=== PATIENT | male | born 1955 | race Caucasian/White ===

== ENCOUNTER → 2016-10-28 | Outpatient (CLI) | payer OTHER ==
[~2016-10-28] MED LIST: ADV250INH INH; ALBU17IN INH; ANOR1AER INH; ARNU1INH3 IN; CLOB0.0548 TOP; DIFL200T PO; DRIS50002 PO; PRED10TA PO; PRED20TAB PO; PULM90IN INH; TYLE325T5 PO; VORI200T5 PO; ZITH500T PO
--- NOTE | 2016-10-28 16:00 | REP ---
Low-dose lung screening CT without IV contrast: No lung masses or nodules are identified. There is chronic pleural parenchymal scarring and retraction in the lung apices bilaterally, not significantly changed from the prior study of 10/10/2013. There are no acute infiltrates or pleural effusions. There are multiple bulla replacing the lung parenchyma and bilaterally. Many of these bulla are quite large. The appearance is similar to the comparison study. Impression: No lung nodules or masses are identified. Category 1.0 low-dose screening lung CT. Recommend continued annual low-dose lung screening CT. Numerous chronic bullae are noted throughout the lung ziegler bilaterally, unchanged. Signed by You Glass MD 10/28/2016 03:51 P
== END ==
LOC: M RAD 14:19
PROVIDERS: ATTEND Internal Medicine Pulmonary Disease
DX: Z12.2 Encounter for screening for malignant neoplasm of respiratory organs (principal); J43.1 Panlobular emphysema; Z87.891 Personal history of nicotine dependence

== ENCOUNTER → 2017-01-23 | Outpatient (CLI) | payer OTHER ==
[~2017-01-23] MED LIST changes: +BREO1INH3 INH; +INCR1INH IN; +LATA5OPD OU
[2017-01-23 17:58] LABS: ANION GAP 7 MEQ/L (8-16); BLOOD UREA NITROGEN 13 MG/DL (7-18); CALCIUM LEVEL 9.4 MG/DL (8.8-10.2); CARBON DIOXIDE LEVEL 28 MEQ/L (21-32); CHLORIDE LEVEL 103 MEQ/L (98-107); CREATININE FOR GFR 0.93 MG/DL (0.70-1.30); GLOMERULAR FILTRATION RATE > 60.0 (>49); GLUCOSE, FASTING 105 MG/DL (80-110); POTASSIUM SERUM 4.3 MEQ/L (3.5-5.1); SODIUM LEVEL 138 MEQ/L (136-145)
== END ==
LOC: M LAB 16:24
PROVIDERS: ATTEND Nurse Practitioner Family
DX: E55.9 Vitamin D deficiency, unspecified (principal)

== ENCOUNTER 2017-03-02 08:30 | Outpatient (CLI) | payer OTHER ==
[~2017-03-02] VITALS: Ht 180.3 cm; Wt 58.1 kg
[~2017-03-02 08:30] MED LIST changes: +LIDOCAINE 2% INJ 100 MG/5 ML SDV (FOR ANES.) As Ordered ONE; +PROPOFOL 200 MG/20 ML VIAL As Ordered ONE
[2017-03-02] MEDS ORDERED: NS 1,000 ML IV ONE (09:00)
--- NOTE | 2017-03-02 09:39 | ROOR ---
Patient Name: Lamine Martinez Procedure Date: 03/02/2017 9:05 AM Date of : 1955 Age: 61 Room: [facility] Gender: Male Note Status: Finalized Procedure: Colonoscopy Indications: High risk colon cancer surveillance: Personal history of colonic polyps, Last colonoscopy: February 2015 Providers: Shilo LEGER MD Referring MD: Kim DELGADO NP Requesting Provider: Medicines: Monitored Anesthesia Care Complications: No immediate complications. Procedure: Pre-Anesthesia Assessment: - The heart rate, respiratory rate, oxygen saturations, blood pressure, adequacy of pulmonary ventilation, and response to care were monitored throughout the procedure. The Colonoscope was introduced through the anus and advanced to the cecum, identified by appendiceal orifice and ileocecal valve. The colonoscopy was performed without difficulty. The patient tolerated the procedure well. The quality of the bowel preparation was good. Findings: The perianal and digital rectal examinations were normal. A single (solitary) ulcer was found appendiceal orifice. Biopsies were taken with a cold forceps for histology. The exam was otherwise without abnormality on direct and retroflexion views. Impression: -Inverted tubular appendix with a deep single (solitary) ulcer at the appendiceal tip. Biopsied. - The examination was otherwise normal on direct and retroflexion views. Recommendation: - Perform CT scan (computed tomography) of the abdomen with contrast at appointment to be scheduled. - My office will schedule you and call you with date for CT scan - To discuss todays findings, my office will call you in the next few days to schedule a follow up appointment. Shilo Leger MD Shilo LEGER MD 03/02/2017 9:38:29 AM This report has been signed electronically. Number of Addenda: 0 Note Initiated On: 03/02/2017 9:05 AM Estimated Blood Loss: Estimated blood loss: none.
[2017-03-02 09:49] VITALS: BP 146/72
== END 2017-03-02 10:05 | disposition home or self-care (01) ==
LOC: M OPP 08:30
PROVIDERS: ATTEND Internal Medicine Gastroenterology
DX: Z12.11 Encounter for screening for malignant neoplasm of colon (principal); K63.3 Ulcer of intestine; Z86.010 Personal history of colon polyps; J44.9 Chronic obstructive pulmonary disease, unspecified; J84.112 Idiopathic pulmonary fibrosis; R06.02 Shortness of breath; B49 Unspecified mycosis; Z87.891 Personal history of nicotine dependence; Z88.8 Allergy status to other drugs, medicaments and biological substances; Z79.899 Other long term (current) drug therapy; Z80.1 Family history of malignant neoplasm of trachea, bronchus and lung

== ENCOUNTER → 2017-03-15 | Outpatient (CLI) | payer OTHER ==
[~2017-03-15] MED LIST changes: +GASTROGRAFIN SOLUTION 30ML (Q9963) As Ordered ONE; +ISOVUE-370 76% 100ML VIAL (Q9967) As Ordered ONE; -LIDOCAINE 2% INJ 100 MG/5 ML SDV (FOR ANES.) As Ordered ONE; -PROPOFOL 200 MG/20 ML VIAL As Ordered ONE
--- NOTE | 2017-03-15 19:39 | REP ---
CT abdomen and pelvis without and with IV contrast: History: Abnormal weight loss. CT contrast dose: 100 ml of intravenous Isovue 370. CT findings: The lungs are markedly hyperinflated and there are large bullae filling much of the right lower hemithorax. Advanced emphysematous changes are seen in the left lower lobe of the lung. No pleural effusion is seen. These findings are unchanged from 08/06/2015. The liver and spleen are normal in size. No focal liver mass lesion is seen. There are several small hepatic cysts noted unchanged. The spleen is unremarkable. No adrenal lesion is seen on either side. The gallbladder and pancreas show no abnormality. There are two small sub-centimeter is cortical cysts in the kidneys, one in each upper pole. No hydronephrosis is seen. No mass lesion is observed. There is some vascular calcification. No intrarenal calculus is seen. There is scattered right colon diverticulosis without CT evidence of diverticulitis. There is sigmoid colon diverticulosis as well. No sigmoid diverticulitis seen. Prostate contains several dystrophic calcifications. Urinary bladder is unremarkable. No abdominal wall defect is seen. Impression: 1. Severe COPD evident at the lung bases. 2. Right and left colonic diverticulosis. 3. Small hepatic and renal cysts. 4. Otherwise unremarkable. Signed by Patel Ayala MD 03/15/2017 08:07 P
== END ==
LOC: M RAD 16:01
PROVIDERS: ATTEND Internal Medicine Gastroenterology
DX: R63.4 Abnormal weight loss (principal); D37.3 Neoplasm of uncertain behavior of appendix; J44.9 Chronic obstructive pulmonary disease, unspecified; K57.30 Diverticulosis of large intestine without perforation or abscess without bleeding; N28.1 Cyst of kidney, acquired; K76.89 Other specified diseases of liver
CPT/HCPCS: 74178; Q9963; Q9967

== ENCOUNTER 2017-11-10 08:15 | Day surgery (SDC) | payer OTHER ==
[2017-11-10] MEDS: NS 1,000 ML IV (08:47)
[2017-11-10] MEDS ORDERED: LIDOCAINE 2% INJ 100 MG/5 ML SDV (FOR ANES.) As Ordered (09:19)
[2017-11-10] MEDS ORDERED: PROPOFOL 200 MG/20 ML VIAL As Ordered (09:19)
== END 2017-11-10 10:04 | disposition home or self-care (01) ==
LOC: M OPP 08:15
DX: Z09 Encounter for follow-up examination after completed treatment for conditions other than malignant neoplasm (principal); D49.0 Neoplasm of unspecified behavior of digestive system; Z86.010 Personal history of colon polyps; K62.1 Rectal polyp; K57.30 Diverticulosis of large intestine without perforation or abscess without bleeding; D12.6 Benign neoplasm of colon, unspecified; K38.8 Other specified diseases of appendix; K21.9 Gastro-esophageal reflux disease without esophagitis; Z87.09 Personal history of other diseases of the respiratory system; R06.02 Shortness of breath; J44.9 Chronic obstructive pulmonary disease, unspecified; J84.112 Idiopathic pulmonary fibrosis; R06.83 Snoring; Z88.8 Allergy status to other drugs, medicaments and biological substances; Z79.899 Other long term (current) drug therapy; Z80.1 Family history of malignant neoplasm of trachea, bronchus and lung
CPT/HCPCS: 45385

== ENCOUNTER → 2018-01-08 | Outpatient (CLI) | payer OTHER | LOC: M EKG 15:06 | DX: R94.31 Abnormal electrocardiogram [ECG] [EKG] (principal) | CPT/HCPCS: 93005 ==

== ENCOUNTER → 2018-01-18 | Outpatient (CLI) | payer OTHER | LOC: M SMT 08:01 | DX: J44.9 Chronic obstructive pulmonary disease, unspecified (principal) | CPT/HCPCS: 71046 ==

== ENCOUNTER → 2018-01-24 | Outpatient (CLI) | payer OTHER | LOC: M RAD 13:58 | DX: Z12.2 Encounter for screening for malignant neoplasm of respiratory organs (principal); F17.210 Nicotine dependence, cigarettes, uncomplicated; J44.9 Chronic obstructive pulmonary disease, unspecified; R91.8 Other nonspecific abnormal finding of lung field | CPT/HCPCS: G0297 ==

== ENCOUNTER → 2018-02-02 | Outpatient (CLI) | payer OTHER ==
[~2018-02-02] MED LIST changes: -ADV250INH INH; -ALBU17IN INH; -ANOR1AER INH; -ARNU1INH3 IN; -BREO1INH3 INH; -CLOB0.0548 TOP; -DIFL200T PO; -DRIS50002 PO; -GASTROGRAFIN SOLUTION 30ML (Q9963) As Ordered ONE; -INCR1INH IN; +ISOVUE-370 76% 100ML VIAL (Q9967) As Ordered; -ISOVUE-370 76% 100ML VIAL (Q9967) As Ordered ONE; -LATA5OPD OU; -PRED10TA PO; -PRED20TAB PO; -PULM90IN INH; -TYLE325T5 PO; -VORI200T5 PO; -ZITH500T PO
== END ==
LOC: M RAD 14:08
DX: R91.8 Other nonspecific abnormal finding of lung field (principal); N28.1 Cyst of kidney, acquired; K76.89 Other specified diseases of liver
CPT/HCPCS: Q9967

== ENCOUNTER → 2018-12-05 | Outpatient (CLI) | payer OTHER ==
[~2018-12-05] MED LIST changes: +ADV250INH INH; +ALBU17IN INH; +ANOR1AER INH; +ARNU1INH3 IN; +BREO1INH3 INH; +CLOB0.0548 TOP; +DIFL200T PO; +DRIS50003 PO; +INCR1INH IN; -ISOVUE-370 76% 100ML VIAL (Q9967) As Ordered; +LATA0.0013 OU; +PRED-351 PO; +PRED20TAB PO; +PULM90IN INH; +TYLE325T5 PO; +VORI200T PO; +ZITH500T PO
--- NOTE | 2018-12-05 13:56 | REP ---
CT chest without contrast: History: Panlobular emphysema. Hemoptysis. Comparison CT study February 02, 2018. August 06, [address] study is also reviewed. CT findings: Preliminary digital wrapper caser radiograph demonstrates marked hyperinflation. A huge right lung bullous is seen. The right hilus is retracted upward as before. There is no evidence of pleural effusion. No pericardial effusion is seen. The heart is not enlarged. Vascular calcification is noted including coronary artery vascular calcification as before. There is a small cyst in the left lobe of the liver. No adrenal lesion is observed. No acute bony abnormality is appreciated. On lung window settings, profound emphysematous changes are again noted. There are huge bullae in the right lower lobe and right upper lobe as before. Moderately large bullae are seen in the left upper lobe and to a lesser extent in the left lower lobe. These are essentially unchanged. Left apical pleuroparenchymal fibrosis which is unchanged from the comparison study. There is a small area of spiculated fibrosis in the left upper lobe more centrally also unchanged. There is a small quantity of peribronchial thickening and inspissated endobronchial mucus in the left lower lobe segmental bronchi. No significant pulmonary nodule is seen. There are one or two granulomatous calcifications in the right lung. There is considerable volume loss in the right upper lobe. The right hilus is retracted upwards. The right upper lobe bronchi are displaced posteriorly and superiorly with the area of bronchiectasis and chronic collapse in the right upper lobe posteriorly with associated fibrosis. A complex cavitary lesion is seen below this in the superior segment of the right lower lobe. This also shows posterior and upward retraction. Air bronchograms are seen. The complex cavitary lesion has an 8.3 cm craniocaudal imaging span by 3.1 by 2.7 cm transverse dimension. This appears essentially unchanged. Impression: Severe COPD emphysematous changes. Chronic atelectasis with scarring right upper lobe and the superior segment right lower lobe with a complex cavitary lesion again seen essentially unchanged. No new mass or adenopathy seen. Electronically Signed by Patel Ayala MD 12/05/2018 02:36 P
== END ==
LOC: M RAD 12:23
PROVIDERS: ATTEND Internal Medicine Pulmonary Disease
DX: J43.1 Panlobular emphysema (principal); R04.2 Hemoptysis; K76.89 Other specified diseases of liver; I25.10 Atherosclerotic heart disease of native coronary artery without angina pectoris; R91.8 Other nonspecific abnormal finding of lung field; J98.11 Atelectasis

== ENCOUNTER → 2020-07-08 | Outpatient (REF) | payer MEDICARE, OTHER | LOC: M LAB REF 17:02 | PROVIDERS: ATTEND Internal Medicine Pulmonary Disease | DX: J44.9 Chronic obstructive pulmonary disease, unspecified (principal) ==

== ENCOUNTER → 2021-03-09 | Outpatient (CLI) | payer MEDICARE, OTHER ==
[2021-03-09 10:42] LABS: ABG BASE EXCESS -2.8 (-2.0-2.0); ABG HCO3 20.5 MEQ/L (22.0-26.0); ABG O2 SATURATION 95.6 % (95.0-99.0); ABG PARTIAL PRESSURE CO2 31.9 mmHg (35.0-45.0); ABG PARTIAL PRESSURE O2 75.2 mmHg (75.0-100.0); ABG STANDARD HCO3 22.1 MEQ/L (22.0-26.0); ABG TOTAL CO2 21.4 MEQ/L (23.0-31.0); ABG pH (ARTERIAL) 7.425 UNITS (7.350-7.450)
--- NOTE | 2021-03-10 10:15 | ECHO ---
ECHOCARDIOGRAM DATE OF PROCEDURE: 03/09/2021 Age: Gender: Height: 170 cm Weight: 51 kg REFERRING PHYSICIAN: Dr. Sultana INDICATION: Chronic obstructive pulmonary disease (COPD) MEASUREMENTS: IVS: 0.8 LV: 2.9 LVPW: 0.9 LA: 2.5 Aorta: 3.1 IVC: 1.3 RV: Mitral E wave velocity is 73; A wave 58 E prime septal: 3.5 E prime lateral: 3.3 FINDINGS: This study is of very limited technical quality due to poor visualization consequently to underlying chronic obstructive pulmonary disease (COPD). Left ventricle has relatively small size and overall likely normal contractility. I estimated the ejection fraction (EF) in the neighborhood of 60-65%. Right ventricle does not appear enlarged and appears to be normally contractile based on limited views. Both atria appear normal. Limited views of aortic, mitral and tricuspid valves appear normal. Pulmonic valve was not visualized. Trivial pericardial effusion is noted. Inferior vena cava is relatively small size. Aortic root is normal. Aortic arch and abdominal aorta were not well seen. Doppler interrogation reveals competent aortic and mitral valves. There is trace tricuspid insufficiency. Calculated pulmonary artery pressure is at least around 40 mmHg or higher based on very poor quality tricuspid regurgitant (TR) jet. Mitral inflow pattern and tissue Doppler imaging of mitral annulus revealed grade 2 diastolic dysfunction. CONCLUSIONS: 1. Study is of poor technical quality with difficult visualization. Underlying sinus rhythm. 2. Relatively small left ventricle with normal left ventricular (LV) systolic function and grade 2 diastolic dysfunction. 3. Normal right ventricle (RV) size. 4. No hemodynamically significant valvular disease. 5. Likely normal central venous pressure. 6. At least mild to moderate pulmonary hypertension.
== END ==
LOC: M CARPUL 10:12
DX: J44.9 Chronic obstructive pulmonary disease, unspecified (principal); R06.00 Dyspnea, unspecified; I27.20 Pulmonary hypertension, unspecified

== ENCOUNTER 2021-06-29 09:28 | Inpatient (IN) | payer MEDICARE, MEDICAID ==
[~2021-06-29] VITALS: Ht 180.3 cm; Wt 52.0 kg
[2021-06-29] MEDS ORDERED: dexameTHASONE 20MG/5ML VIAL (J1100 PER 1MG) IV ONE (09:40)
[2021-06-29] MEDS ORDERED: ADVA230A INH (10:08)
[2021-06-29] MEDS ORDERED: PRED10TA2 PO (10:08)
[2021-06-29 10:10] LABS: BASO # 0.1 10^3/uL (0.0-0.2); BASO % 0.4 % (0.0-1.0); EOS % 0.2 % (0.0-3.0); HEMATOCRIT 49.5 % (42.0-52.0); LYMPH # 1.9 10^3/uL (1.5-5.0); MEAN CORPUSCULAR HEMOGLOBIN 30.2 pg (27.0-33.0); MEAN CORPUSCULAR HGB CONC 32.3 g/dl (32.0-36.5); MEAN CORPUSCULAR VOLUME 93.4 fl (80.0-96.0); MONO # 1.3 10^3/uL (0.0-0.8); MONO % 5.6 % (2.0-8.0); NEUTROPHILS # 20.2 10^3/uL (1.5-8.5); NEUTROPHILS % 84.8 % (36.0-66.0); PLATELET COUNT, AUTOMATED 695 10^3/uL (150-450); WHITE BLOOD COUNT 23.8 10^3/uL (4.0-10.0)
[2021-06-29] MEDS: COMBIVENT RESPIMAT 100-20MCG INHALER 4GM INH SCH ×2 (10:14→10:15)
[2021-06-29 10:32] LABS: ABG BASE EXCESS -3.6 (-2.0-2.0); ABG HCO3 19.2 MEQ/L (22.0-26.0); ABG O2 SATURATION 95.5 % (95.0-99.0); ABG PARTIAL PRESSURE CO2 29.3 mmHg (35.0-45.0); ABG PARTIAL PRESSURE O2 77.9 mmHg (75.0-100.0); ABG STANDARD HCO3 21.4 MEQ/L (22.0-26.0); ABG TOTAL CO2 20.1 MEQ/L (23.0-31.0); ABG pH (ARTERIAL) 7.434 UNITS (7.350-7.450)
--- NOTE | 2021-06-29 10:39 | REP ---
INDICATION: DYSPNEA/COUGH COMPARISON: 01/18/2018 TECHNIQUE: Portable AP view of the chest FINDINGS: Severe advanced COPD/emphysematous changes are again noted. Superimposed left-sided infiltrates cannot be excluded. IMPRESSION: Advanced severe COPD/emphysematous disease with suspected superimposed left-sided infiltrates. <Electronically signed by Bird Diallo > 06/29/21 [id number]
[2021-06-29 10:48] LABS: ALBUMIN 2.6 GM/DL (3.2-5.2); ALT/SGPT 25 U/L (12-78); BILIRUBIN,DIRECT 0.3 MG/DL (0.0-0.2); BILIRUBIN,TOTAL 0.8 MG/DL (0.2-1.0); BLOOD UREA NITROGEN 21 MG/DL (7-18); CALCIUM LEVEL 10.1 MG/DL (8.8-10.2); CARBON DIOXIDE LEVEL 24 MEQ/L (21-32); CHLORIDE LEVEL 100 MEQ/L (98-107); CREATININE FOR GFR 1.02 MG/DL (0.70-1.30); GLOMERULAR FILTRATION RATE > 60.0 (>49); GLUCOSE, FASTING 126 MG/DL (70-100); NT-PRO BNP 419 PG/ML (<125); POTASSIUM SERUM 5.3 MEQ/L (3.5-5.1); SODIUM LEVEL 136 MEQ/L (136-145); TOTAL PROTEIN 7.5 GM/DL (6.4-8.2)
[2021-06-29] MEDS ORDERED: cefTRIAXone SOD 2 GM in D5W MINI-BAG PLUS 50 ML IV ONE (10:50)
[2021-06-29] MEDS ORDERED: AZITHROMYCIN INJ 500 MG, VIAL MATE ADAPTER 1 EACH in NS 250 ML IV ONE (10:50)
[2021-06-29] MEDS ORDERED: VENTAER INH (11:38)
[2021-06-29] MEDS ORDERED: ALBU83IN INH (11:40)
[2021-06-29] MEDS ORDERED: HOME MED LIST COMPLETE! XX SCH (11:45)
[2021-06-29] MEDS ORDERED: ACETAMINOPHEN TAB 650MG DOSE (2X325MG) PO ONE (13:05)
--- NOTE | 2021-06-29 13:57 | HPEPDOC ---
[facility] Medical History & Physical Date of Admission Jun 29, 2021 Date of Service: Jun 29, 2021 Attending Physician: EMIGDIO HUBER DO History and Physical CHIEF COMPLAINT: Shortness of breath HISTORY OF PRESENT ILLNESS: Patient is a 65-year-old male who came to the ED today (06/29/2021) today after 2-week period of ongoing shortness of breath. Patient states that beginning 2 weeks ago, his symptoms started with flulike symptoms (muscle aches, decreased appetite, diarrhea) which lasted for about 48 hours. At that time. The body aches have resolved but he was still experiencing decreased appetite, diarrhea, and shortness of breath. After that he began to become weaker and was becoming more short of breath with exertion. Since this first 2 days he said the diarrhea has been intermittent. He decided to come to the hospital to get checked out because the shortness of breath has worsened over the last 2 to 3 days and he has not seen any improvement since his symptoms started. Patient has a extensive history of COPD and documented pneumonia episodes; is not on home oxygen. Of note, patient sees Dr. Worley for pulmonology. He had an appointment last week but he canceled it because he was not feeling good. Per ER son report, upon arrival to the ED patient was satting in the low 80%/high 70s on room air. He was given dexamethasone and an albuterol nebulizer treatment. He was started on ceftriaxone and azithromycin for bacterial pneumonia coverage.Chest x-ray showed "advanced severe COPD/emphysematous disease with suspected superimposed left-sided infiltrates." Hospitalist service was paged to admit the patient for acute hypoxic respiratory failure PAST MEDICAL HISTORY: 1. Emphysema. 2. Fungal pneumonia (2013). 3. Periodontal disease (2014). 4. Tobacco abuse 5. Alcohol abuse PAST SURGICAL HISTORY: 1. Lung biopsy. 2. Hernia repair -childhood. 3. Bronchoscopy (2013) -follows Dr. Worley for pulmonology. SOCIAL HISTORY: Marital status: Single. Resides in: Apartment Children: None Employment: Unemployed Tobacco use: Former smoker, quit 7 years ago (before that smoked 2 packs a day beginning at 15) ETOH: Denies current use Illicit drug use: Denies IV drug use: Denies Marijuana use: Last smoked 3 to 4 weeks ago; began smoking marijuana occasionall y beginning at age 15, and then a few years ago, started smoking daily FAMILY HISTORY: Father: Lung cancer, emphysema Mother: Heart disease Siblings: 2 brothers; one brother has history of double bypass and skin cancer ALLERGIES: Please see below. REVIEW OF SYSTEMS: CONSTITUTIONAL: Reports objective fevers and chills. HEENT: Denies blurry vision and postnasal drip. CARDIOVASCULAR: Denies tachycardia; reported one episode of short, sharp chest pain that happened 2 days ago (said it lasted probably less than 30 seconds). RESPIRATORY: Reports shortness of breath, productive cough) usual cough related to chronic lung disease). GASTROINTESTINAL: Reports nausea associated with coughing fits, and diarrhea; denies vomiting GENITOURINARY: Denies dysuria, hematuria. MUSCULOSKELETAL: Denies new muscle or joint pain NEUROLOGICAL: Denies headache, dizziness PSYCHIATRIC: Denies anxiety, depression ENDOCRINE: Denies changes in thirst or increased urination HOME MEDICATIONS: Please see below. PHYSICAL EXAMINATION: VITAL SIGNS: Temperature 98.6, pulse 112, respiratory rate 20, blood pressure 14 4/85, pulse oximetry 98% % on 2 L nasal cannula. GENERAL APPEARANCE: 65-year-old, male, lying in bed propped up in the ED, frail in appearance, on 2 L nasal cannula. HEENT: Head normocephalic/atraumatic, eyes PERRLA and EOMI. CARDIOVASCULAR: Tachycardic but regular rhythm. LUNGS: Diffuse wheezes appreciated bilaterally, along with decreased lung sounds especially noted in the left side. ABDOMEN: Normoactive bowel sounds and nontender to palpation. EXTREMITIES: No lower extremity edema appreciated. NEUROLOGICAL: No gross deficits appreciated. PSYCHIATRIC: Alert and oriented x3. LABORATORY DATA: See below. IMAGING: Advanced severe COPD/emphysematous disease with suspected superimposed left- sided infiltrates MICROBIOLOGY: Please see below. ASSESSMENT: Patient is a 65-year-old male, who presented to the ED today (06/29/2021) With 2-week history of ongoing shortness of breath, secondary to acute hypoxic respiratory failure, and possible left-sided pneumonia. PLAN: #. Acute hypoxic respiratory failure possibly secondary to COPD exacerbation or bacterial superimposed pneumonia -Patient currently maintaining sats at 90% on 2 L nasal cannula -In the ED he was given dexamethasone 10 mg IV once and albuterol breathing treatments -Continue with methylprednisolone 40 mg IV twice daily -Patient's heart rate has remained tachycardic -begin Xopenex neb every 6 hours -Continue pantoprazole for ulcer prophylaxis -Begin aspiration precautions and COPD diet -Incentive spirometry -Begin Spiriva and continue Advair and Incruse Ellipta -Titrate O2 to maintain saturations between 88 and 92% #. Sepsis likely secondary to left sided bacterial pneumonia -Begin ceftriaxone and doxycycline tomorrow morning -Obtain sputum culture from expectorated sputum -Atypical cultures have been ordered -Respiratory panel negative -Procalcitonin has been ordered #. Respiratory alkalosis -Lactate elevated upon presentation at 3.4 -Repeat lactic acid was within normal range. We will continue to monitor. #. Lactic acidosis. Patient's lactic acid was elevated 3.4 on presentation. Now the patient was receiving oxygen, patient's lactic acid has improved. This is most likely secondary to patient's respiratory distress. DVT prophylaxis: Lovenox CODE STATUS: Full code Disposition: Patient will be admitted to the progressive care unit. I do expect the patient be discharged after greater than equal to 2 midnight stay. Vital Signs Vital Signs Date Time Temp Pulse Resp B/P (MAP) Pulse Ox O2 Delivery O2 Flow Rate FiO2 06/29/21 12:00 112 20 144/85 (104) 98 Nasal Cannula 2.0 06/29/21 09:41 99.6 Laboratory Data Labs 24H Laboratory Tests 2 06/29/21 09:53: Immature Granulocyte % (Auto) 1.0, Neutrophils (%) (Auto) 84.8H, Lymphocytes (%) (Auto) 8.0L, Monocytes (%) (Auto) 5.6, Eosinophils (%) (Auto) 0.2, Basophils (%) (Auto) 0.4, Neutrophils # (Auto) 20.2H, Lymphocytes # (Auto) 1.9, Monocytes # (Auto) 1.3H, Eosinophils # (Auto) 0.0, Basophils # (Auto) 0.1, Nucleated Red Blood Cells % (auto) 0.0, Anion Gap 12, Glomerular Filtration Rate > 60.0, Lac tic Acid Level 3.4*H, Calcium Level 10.1, Total Bilirubin 0.8, Direct Bilirubin 0.3H, Aspartate Amino Transf (AST/SGOT) 22, Alanine Aminotransferase (ALT/SGPT) 25, Alkaline Phosphatase 117, YL-Lob-L-Type Natriuretic Peptide 419H, Total Protein 7.5, Albumin 2.6L, Albumin/Globulin Ratio 0.5 06/29/21 10:19: Blood Gas Bicarbonate Standard 21.4L, Arterial Blood pH 7.434, Arterial Blood Partial Pressure CO2 29.3L, Arterial Blood Partial Pressure O2 77.9, Arterial Blood Total CO2 20.1L, Arterial Blood HCO3 19.2L, Arterial Blood Base Excess - 3.6L, Arterial Blood Oxygen Saturation 95.5 CBC/BMP Laboratory Tests 06/29/21 09:53 Microbiology Microbiology 06/29/21 Respiratory Virus Panel (PCR) ([facility]) - Final, Complete 06/29/21 Blood Culture, Received Pending 06/29/21 Blood Culture, Received Pending Home Medications Scheduled Fluticasone Propion/Salmeterol (Advair Hfa 230-21 Mcg Inhaler) 12 Gm Hfa.aer.ad, 2 PUFFS INH BID Prednisone (Prednisone) 10 Mg Tablet, 10 MG PO Q2D Umeclidinium [place] (Incruse Ellipta) 62.5 Mcg/Inh Inh, 1 PUFF IN DAILY Scheduled PRN Albuterol Sulf (Albuterol Sulfate) 2.5 Mg/3 Ml Vial.neb, 1 VIAL INH QIDP PRN for SOB/WHEEZING Albuterol Sulfate (Ventolin Hfa) 18 Gm Hfa.aer.ad, 2 PUFF INH Q4-6HP PRN for wheezing Allergies Coded Allergies: itraconazole (Verified Allergy, Severe, RASH, 06/29/21) GME ATTESTATION GME ATTESTATION My faculty preceptor for this patient encounter was physically present during the encounter and was fully available. All aspects of the patient interview, examination, medical decision making process, and medical care plan development were reviewed and approved by the faculty preceptor. The faculty preceptor is aware and concurs with the plan as stated in the body of this note and will attest to such by his/her cosignature. ATTENDING NOTE I, Emigdio Huber DO, have independently examined this patient and performed my own physical exam, as well as reviewed the documentation and edited where necessary. I have discussed in detail with the resident the findings and plan of treatment as documented by the resident and edited their note. I agree with their findings and treatment plan and have edited their documentation. I will continue to follow the patient during this hospital stay. Kenton Sosa DO Jun 29, 2021 13:57 EMIGDIO HUBER DO Jun 29, 2021 17:28
[2021-06-29] MEDS: LEVALBUTEROL 1.25 MG/0.5 ML CONCENTRATE NEB NEB SCH ×2 (14:00→20:00)
[2021-06-29] MEDS: TIOTROPIUM INHALER/CAPSULE (SPIRIVA) INH SCH (14:23)
[2021-06-29 16:51] VITALS: BP 141/77
[2021-06-29] MEDS: PANTOPRAZOLE 40MG TAB (PROTONIX) PO SCH (17:29)
--- NOTE | 2021-06-29 19:29 | ECGEPIP ---
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
[2021-06-29 20:00] VITALS: BP_SYST 109; BP_SYST 119; BP_DIAS 58; BP_DIAS 64
[2021-06-29] MEDS: ADVAIR HFA 230/21MCG INHALER INH SCH (20:00)
[2021-06-29] MEDS: methylPREDNISolone 40MG 1ML VIAL IV SCH (20:41)
[2021-06-30] VITALS (17 sets, daily range): BP systolic 104–138; BP diastolic 62–81; O2SAT 88–94
[2021-06-30] MEDS: LEVALBUTEROL 1.25 MG/0.5 ML CONCENTRATE NEB NEB SCH ×4 (01:48→19:29)
[2021-06-30] MEDS: DOXYCYCLINE HYCLATE 100 MG in D5W MINI-BAG PLUS 100 ML IV SCH ×2 (05:26→17:21)
[2021-06-30 05:58] LABS: HEMATOCRIT 39.2 % (42.0-52.0); MEAN CORPUSCULAR HEMOGLOBIN 29.8 pg (27.0-33.0); MEAN CORPUSCULAR HGB CONC 31.9 g/dl (32.0-36.5); MEAN CORPUSCULAR VOLUME 93.3 fl (80.0-96.0); WHITE BLOOD COUNT 18.6 10^3/uL (4.0-10.0)
[2021-06-30 06:09] LABS: HEMOGLOBIN 12.5 g/dl (13.5-17.5); PLATELET COUNT, AUTOMATED 566 10^3/uL (150-450)
[2021-06-30 06:40] LABS: BLOOD UREA NITROGEN 22 MG/DL (7-18); CALCIUM LEVEL 9.1 MG/DL (8.8-10.2); CARBON DIOXIDE LEVEL 25 MEQ/L (21-32); CHLORIDE LEVEL 106 MEQ/L (98-107); CREATININE FOR GFR 0.77 MG/DL (0.70-1.30); GLOMERULAR FILTRATION RATE > 60.0 (>49); GLUCOSE, FASTING 153 MG/DL (70-100); MAGNESIUM LEVEL 2.5 MG/DL (1.8-2.4); POTASSIUM SERUM 5.8 MEQ/L (3.5-5.1); SODIUM LEVEL 136 MEQ/L (136-145)
[2021-06-30] MEDS: ADVAIR HFA 230/21MCG INHALER INH SCH ×2 (08:00→19:29)
[2021-06-30] MEDS: ENOXAPARIN 40MG/0.4ML SYRINGE (J1650 PER 10MG) SC SCH (08:03)
[2021-06-30] MEDS: PANTOPRAZOLE 40MG TAB (PROTONIX) PO SCH (08:03)
[2021-06-30] MEDS: methylPREDNISolone 40MG 1ML VIAL IV SCH ×2 (08:03→21:00)
[2021-06-30] MEDS ORDERED: PREVNAR 13 VACCINE SYRINGE IM ONE (09:00)
[2021-06-30] MEDS: TIOTROPIUM INHALER/CAPSULE (SPIRIVA) INH SCH (09:41)
[2021-06-30] MEDS: cefTRIAXone SOD 1 GM in D5W MINI-BAG PLUS 50 ML IV SCH (11:55)
--- NOTE | 2021-06-30 13:43 | IPNPDOC ---
Date Seen The patient was seen on 06/30/21. Progress Note SUBJECTIVE: Patient is a 59-year-old male presents to the ED on 06/29/2021 after 2 week period of ongoing shortness of breath and weakness. He is not on home oxygen. He was admitted for inpatient management and was placed on ceftriaxone and doxycycline for coverage for possible bacterial pneumonia, dexamethasone, Spiriva and Advair and Incruse Ellipta. Today patient was examined at bedside. He appears to be breathing much easier with considerably less effort than when first saw patient yesterday. He says he is feeling better as well, and reported no events overnight. He reports continued shortness of breath with exertion but reports less fatigue. He denies nausea, vomiting, diarrhea, chest pain. Of note his potassium came back elevated at 5.8 and was rechecked due to sample being hemolyzed. On recheck it was 4.4. OBJECTIVE PHYSICAL EXAMINATION: VITAL SIGNS: Please see below. GENERAL: 65-year-old, male, frail in appearance, lying in bed, no acute distress. Noted to have jeans and shoes on still in bed. Says that he has not changed his clothes in 2 weeks CARDIOVASCULAR: Regular rate and rhythm, no murmurs, no rubs, no gallops. RESPIRATORY: Clear to auscultation but diminished breath sounds throughout; pursed lip breathing but less than yesterday, symmetric chest expansion ABDOMINAL: Normoactive bowel sounds and nontender to palpation EXTREMITIES: No lower extremity edema present LABORATORY DATA, IMAGING STUDIES, MICROBIOLOGY: Please see below. DVT prophylaxis ordered?: Lovenox ASSESSMENT AND PLAN: This is a 59-year-old male with acute failure secondary to COPD exacerbation for superimposed bacterial pneumonia. #. Acute hypoxic respiratory failure possibly secondary to COPD exacerbation or bacterial superimposed pneumonia -Patient currently maintaining sats at 90% on 2 L nasal cannula -Continue with methylprednisolone 40 mg IV twice daily -Patient's heart rate has remained less than 100 -Continue pantoprazole for ulcer prophylaxis -Continue aspiration precautions and COPD diet -Incentive spirometry -Continue Spiriva and continue Advair and Incruse Ellipta -Titrate O2 to maintain saturations between 88 and 92% #. Sepsis likely secondary to left sided bacterial pneumonia -Patient is remained afebrile overnight, his white blood cell count and lactate have decreased -Continue ceftriaxone and doxycycline -we will likely transition to oral antibiotics tomorrow due to patient's improvement -Obtain sputum culture from expectorated sputum -Atypical cultures have been ordered -Respiratory panel negative -Procalcitonin normal #. Respiratory alkalosis -Lactate within normal limits (2.0) #. Lactic acidosis. Patient's lactic acid was elevated 3.4 on presentation. Now the patient was receiving oxygen, patient's lactic acid has improved. This is most likely secondary to patient's respiratory distress. #. Hyperkalemia. Morning labs showed the patient's potassium to be 5.8. It was 5.3 yesterday. There was a comment stating the patient's potassium this morning was done on a hemolyzed sample. Recheck was performed and it was 4.4. We will continue to monitor. DVT prophylaxis: Lovenox DISPOSITION: Pending transition to oral antibiotics and oral steroids, likely discharge tomorrow. VS, I&O, 24H, Fishbone Vital Signs/I&O Vital Signs Date Time Temp Pulse Resp B/P (MAP) Pulse Ox O2 Delivery O2 Flow Rate FiO2 06/30/21 12:00 97.3 89 19 112/63 (79) 94 Nasal Cannula 2.0 I&O- Last 24 Hours up to 6 AM 06/30/21 06:00 Intake Total 655 ml Output Total 400 ml Balance 255 ml Laboratory Data 24H LABS Laboratory Tests 2 06/29/21 14:13: Lactic Acid Level 2.0 06/29/21 21:40: 06/30/21 05:06: Nucleated Red Blood Cells % (auto) 0.0, Anion Gap 5L, Glomerular Filtration Rate > 60.0, Calcium Level 9.1, Magnesium Level 2.5H CBC/BMP Laboratory Tests 06/30/21 05:06 06/30/21 08:59 Microbiology Microbiology 06/29/21 Respiratory Virus Panel (PCR) ([facility]) - Final, Complete 06/29/21 Blood Culture - Preliminary, Resulted No growth after 24 hours . All specim... 06/29/21 Blood Culture - Preliminary, Resulted No growth after 24 hours . All specim... GME ATTESTATION GME ATTESTATION My faculty preceptor for this patient encounter was physically present during the encounter and was fully available. All aspects of the patient interview, examination, medical decision making process, and medical care plan development were reviewed and approved by the faculty preceptor. The faculty preceptor is aware and concurs with the plan as stated in the body of this note and will attest to such by his/her cosignature. Kenton Sosa DO Jun 30, 2021 13:43 STORM HUBER DO Jun 30, 2021 17:22
[2021-07-01] VITALS (16 sets, daily range): BP systolic 103–132; BP diastolic 62–80; O2SAT 90–99
[2021-07-01] MEDS: LEVALBUTEROL 1.25 MG/0.5 ML CONCENTRATE NEB NEB SCH ×3 (02:00→13:40)
[2021-07-01] MEDS: DOXYCYCLINE HYCLATE 100 MG in D5W MINI-BAG PLUS 100 ML IV SCH (05:17)
[2021-07-01 05:48] LABS: HEMOGLOBIN 12.1 g/dl (13.5-17.5); MEAN CORPUSCULAR HEMOGLOBIN 29.7 pg (27.0-33.0); MEAN CORPUSCULAR HGB CONC 31.8 g/dl (32.0-36.5); MEAN CORPUSCULAR VOLUME 93.4 fl (80.0-96.0); PLATELET COUNT, AUTOMATED 546 10^3/uL (150-450); RED BLOOD COUNT 4.07 10^6/uL (4.30-6.10)
[2021-07-01 06:18] LABS: ALT/SGPT 35 U/L (12-78); BILIRUBIN,TOTAL 0.1 MG/DL (0.2-1.0); BLOOD UREA NITROGEN 18 MG/DL (7-18); CALCIUM LEVEL 8.9 MG/DL (8.8-10.2); CARBON DIOXIDE LEVEL 26 MEQ/L (21-32); CHLORIDE LEVEL 114 MEQ/L (98-107); CREATININE FOR GFR 0.71 MG/DL (0.70-1.30); GLOMERULAR FILTRATION RATE > 60.0 (>49); GLUCOSE, FASTING 129 MG/DL (70-100); POTASSIUM SERUM 4.6 MEQ/L (3.5-5.1); SODIUM LEVEL 144 MEQ/L (136-145); TOTAL PROTEIN 6.1 GM/DL (6.4-8.2)
[2021-07-01] MEDS: ADVAIR HFA 230/21MCG INHALER INH SCH (07:24)
[2021-07-01] MEDS: TIOTROPIUM INHALER/CAPSULE (SPIRIVA) INH SCH (07:24)
[2021-07-01] MEDS: PANTOPRAZOLE 40MG TAB (PROTONIX) PO SCH (09:32)
[2021-07-01] MEDS: methylPREDNISolone 40MG 1ML VIAL IV SCH (09:32)
[2021-07-01] MEDS: ENOXAPARIN 40MG/0.4ML SYRINGE (J1650 PER 10MG) SC SCH (09:32)
[2021-07-01] MEDS: cefTRIAXone SOD 1 GM in D5W MINI-BAG PLUS 50 ML IV SCH (11:50)
[2021-07-01] MEDS ORDERED: PRED10TA2 PO (13:13)
[2021-07-01] MEDS ORDERED: CEFD300CAP PO (13:13)
[2021-07-01] MEDS ORDERED: DOXY100T PO (13:13)
--- NOTE | 2021-07-01 15:49 | DS.PDOC ---
Discharge Summary General Date of Admission Jun 29, 2021 at 12:51 Date of Discharge Jul 01, 2021 Attending Physician: EMIGDIO CARTAGENA DO Discharge Summary PROCEDURES PERFORMED DURING STAY: None. ADMITTING DIAGNOSES: 1. Acute hypoxic respiratory failure secondary to COPD exacerbation or bacterial superimposed pneumonia 2. Sepsis likely secondary to left-sided bacterial pneumonia 3. Respiratory alkalosis 4. Lactic acidosis 5. Hyperkalemia DISCHARGE DIAGNOSES: 1. Acute hypoxic respiratory failure secondary to COPD exacerbation or bacterial superimposed pneumonia 2. Sepsis likely secondary to left-sided bacterial pneumonia 3. Respiratory alkalosis 4. Lactic acidosis 5. Hyperkalemia -hemolyzed sample, within normal limits on redraw COMPLICATIONS/CHIEF COMPLAINT: Acute And Chronic Respiratory Failure With Hypoxia. HISTORY OF PRESENT ILLNESS: Mr. Oliveira is a 65-year-old male who presented to the ED on 06/29/2021 2-week period of being short of breath. Said symptoms started flulike in nature with decreased appetite, muscle aches, diarrhea, and gradually developed weakness and more short of breath on exertion. He has extensive COPD history. He is not on home oxygen. HOSPITAL COURSE: 06/29/2021: Patient presented to the ED after 2 weeks of shortness of breath. Upon arrival in the ED he was satting in the low 80s/high 70s, and imaging showed evidence of possible pneumonia. He was started on ceftriaxone and azithromycin along with steroids and inhaled medications, and admitted for inpatient management. He required nasal cannula oxygen to maintain saturations between 88% to 92%. 06/30/2021: Ceftriaxone and azithromycin day 2. Patient appeared to be breathing much easier and with less effort compared to day before. No events were reported overnight. He remained afebrile overnight, his white blood cell decrease in his lactate trended down to within normal limits (2.0), and his pro- Isiah came back normal, decreasing likelihood of infection. 07/01/2021: Ceftriaxone and azithromycin day 3. Patient still appears to be doing better than he was on admission. He seems to be making less effort to breathe, but was seen slightly pursed lip breathing and using accessory muscles when got back in bed from walking to his bathroom from the bed. He is able to main saturations between 88% to 92%. He will need home oxygen with exertion to maintain saturations tween 88% to 92%. He has passed his home safety evaluation and cleared for discharge and did qualify for home oxygen at this time. Patient requires home oxygen with ambulation as he did desaturate below 88%. Patient did recover very quickly once being placed on 2 L of oxygen. Patient was encouraged to continue the use of home oxygen with ambulation until he sees his primary care provider. DISCHARGE MEDICATIONS: Please see below. ALLERGIES: Please see below. PHYSICAL EXAMINATION ON DISCHARGE: VITAL SIGNS: Please see below. GENERAL: 65-year-old, male, lying in bed, no acute distress HEENT: Head normocephalic/atraumatic, eyes EOMI and PERRLA CARDIOVASCULAR EXAMINATION: Borderline tachycardic (patient had just gotten in bed from walking to bathroom in room), regular rhythm RESPIRATORY EXAMINATION: Clear but distant breath sounds, no adventitious breath sounds appreciated; did notice accessory muscle use and pursed lip breathing after patient walked back from bathroom to bed), conversational dyspnea appreciated but less than observed in days prior ABDOMINAL EXAMINATION: Normoactive bowel sounds, nontender to palpate EXTREMITIES: No lower extremity edema appreciated NEUROLOGICAL EXAMINATION: No gross deficits LABORATORY DATA: Please see below. IMAGING: CXR 06/29/2021: Advanced severe COPD/emphysematous disease with suspected superimposed left-sided infiltrates. PROGNOSIS: Improved ACTIVITY: As tolerated. DIET: Low-sodium diet DISPOSITION: Home with supplemental oxygen for exertion DISCHARGE INSTRUCTIONS AND ITEMS TO FOLLOW-UP ON OUTPATIENT: 1. Take 1 dose of cefdinir and 1 dose of doxycycline tonight (07/01/2021). Beginning tomorrow 07/02/2021, take 1 cefdinir capsule and 1 doxycycline tablet twice a day till finished with prescriptions. 2. Take prescribed prednisone taper as directed. 3. Begin your home prednisone dose (10 mg every other day) after finishing taper. 4. Take other home medications as directed. 5. Obtain home oxygen equipment prescribed to you; titrate as needed to maintain oxygen saturations between 88% to 92% with exertion. 6. Follow-up with your PCP, and wireworker supervisor (Dr. Worley), as soon as possible. 7. If symptoms return, please return to ED. 8. Thank you for allowing us to be part of your care. DISCHARGE CONDITION: Stable. TIME SPENT ON DISCHARGE: 35 minutes. Vital Signs/I&Os Vital Signs Date Time Temp Pulse Resp B/P (MAP) Pulse Ox O2 Delivery O2 Flow Rate FiO2 07/01/21 12:00 97.8 83 18 119/62 (81) 94 Room Air 07/01/21 06:00 2.0 I&O- Last 24 Hours up to 6 AM 07/01/21 06:00 Intake Total 1170 ml Output Total 1000 ml Balance 170 ml Laboratory Data Labs 24H Laboratory Tests 2 07/01/21 05:04: Nucleated Red Blood Cells % (auto) 0.0, Anion Gap 4L, Glomerular Filtration Rate > 60.0, Calcium Level 8.9, Total Bilirubin 0.1#L, Aspartate Amino Transf (AST/SGOT) 30, Alanine Aminotransferase (ALT/SGPT) 35, Alkaline Phosphatase 136H, Total Protein 6.1L, Albumin 2.0#L, Albumin/Globulin Ratio 0.5 CBC/BMP Laboratory Tests 07/01/21 05:04 Microbiology Microbiology 06/29/21 Respiratory Virus Panel (PCR) ([facility]) - Final, Complete 06/29/21 Blood Culture - Preliminary, Resulted No Growth after 48 hours. All Specime... 06/29/21 Blood Culture - Preliminary, Resulted No Growth after 48 hours. All Specime... Discharge Medications Scheduled Cefdinir (Cefdinir) 300 Mg Capsule, 300 MG PO BID Take one in evening today (07/01/2021); then take one capsule, twice a day beginning (07/02) till finished. Doxycycline Hyclate (Doxycycline Hyclate) 100 Mg Tablet, 100 MG PO BID Take one tab in evening, tonight (07/01); then take 1 tab, twice a day beginning 07/02, till finished. Fluticasone Propion/Salmeterol (Advair Hfa 230-21 Mcg Inhaler) 12 Gm Hfa.aer.ad, 2 PUFFS INH BID, (Reported) Prednisone (Prednisone) 10 Mg Tablet, 10 MG PO Q2D, (Reported) Prednisone (Prednisone) 10 Mg Tablet, 10 MG PO TAPER Take 4 tabs daily x 5 days, then 3 tabs daily x 3 days, then 2 tabs daily x 3 days, then 1 tab daily x 3 days and stop. Umeclidinium [place] (Incruse Ellipta) 62.5 Mcg/Inh Inh, 1 PUFF IN DAILY, (Re ported) Scheduled PRN Albuterol Sulf (Albuterol Sulfate) 2.5 Mg/3 Ml Vial.neb, 1 VIAL INH QIDP PRN for SOB/WHEEZING, (Reported) Albuterol Sulfate (Ventolin Hfa) 18 Gm Hfa.aer.ad, 2 PUFF INH Q4-6HP PRN for wheezing, (Reported) Allergies Coded Allergies: itraconazole (Verified Allergy, Severe, RASH, 06/29/21) GME ATTESTATION GME ATTESTATION My faculty preceptor for this patient encounter was physically present during the encounter and was fully available. All aspects of the patient interview, examination, medical decision making process, and medical care plan development were reviewed and approved by the faculty preceptor. The faculty preceptor is aware and concurs with the plan as stated in the body of this note and will attest to such by his/her cosignature. ATTENDING NOTE I, Emigdio Cartagena DO, have independently examined this patient and performed my own physical exam, as well as reviewed the documentation and edited where necessary. I have discussed in detail with the resident the findings and plan of treatment as documented by the resident and edited their note. I agree with their findings and treatment plan and have edited their documentation. I will continue to follow the patient during this hospital stay. Kenton Sosa DO Jul 01, 2021 15:49 EMIGDIO CARTAGENA DO Jul 01, 2021 17:22
[2021-07-01 16:08] LABS: MYCOPLASMA PNEUMONIAE IgG 1263 U/mL (0-99); MYCOPLASMA PNEUMONIAE IgM <770 U/mL (0-769)
[2021-07-01] MEDS ORDERED: CEFDINIR 300 MG CAP (OMNICEF) PO SCH (21:00)
[2021-07-01] MEDS ORDERED: DOXYCYCLINE HYCLATE 100MG TABLET PO SCH (21:00)
[2021-07-02] MEDS ORDERED: predniSONE 20 MG TAB PO SCH (09:00)
[2021-07-02 12:12] LABS: BODY FLUID CULTURE Not indicated. (.); LEGIONELLA ANTIGEN URINE Negative (Negative); ORGANISM ID Not indicated. (.); SPECIMEN SOURCE Urine (.); URINE STREP PNEUMONIAE ANTIGEN Negative (Negative)
== END 2021-07-01 17:41 | disposition home health service (06) | DRG 871 ==
LOC: EDBD 09:28 → M ED 09:28 → M ED INP 12:51 → ENRESERV 15:32 → M PCU 16:38
PROVIDERS: ADMIT Family Medicine; ATTEND Family Medicine
DX: A41.9 Sepsis, unspecified organism (principal); J15.9 Unspecified bacterial pneumonia; J96.01 Acute respiratory failure with hypoxia; J44.1 Chronic obstructive pulmonary disease with (acute) exacerbation; J44.0 Chronic obstructive pulmonary disease with (acute) lower respiratory infection; E87.3 Alkalosis; E87.2 Acidosis; Z87.891 Personal history of nicotine dependence; F12.10 Cannabis abuse, uncomplicated; Z20.822 Contact with and (suspected) exposure to COVID-19; Z79.52 Long term (current) use of systemic steroids; Z88.8 Allergy status to other drugs, medicaments and biological substances; Z79.899 Other long term (current) drug therapy; E87.5 Hyperkalemia

== ENCOUNTER → 2021-07-30 | Outpatient (CLI) | payer MEDICARE, MEDICAID ==
[~2021-07-30] MED LIST changes: +ADVA230A INH; +ALBU83IN INH; +CEFD300CAP PO; +DOXY-443 PO; +DOXY100T PO; +LASI20TA3 PO; +PRED10TA2 PO; +VENTAER INH
[2021-07-30 10:45] LABS: BASO # 0.1 10^3/uL (0.0-0.2); BASO % 0.3 % (0.0-1.0); EOS # 0.1 10^3/uL (0.0-0.5); EOS % 0.3 % (0.0-3.0); HEMATOCRIT 42.5 % (42.0-52.0); HEMOGLOBIN 13.7 g/dl (13.5-17.5); LYMPH # 1.7 10^3/uL (1.5-5.0); LYMPH % 8.4 % (24.0-44.0); MEAN CORPUSCULAR HEMOGLOBIN 29.1 pg (27.0-33.0); MEAN CORPUSCULAR HGB CONC 32.2 g/dl (32.0-36.5); MEAN CORPUSCULAR VOLUME 90.4 fl (80.0-96.0); MONO # 1.1 10^3/uL (0.0-0.8); MONO % 5.6 % (2.0-8.0); NEUTROPHILS # 16.8 10^3/uL (1.5-8.5); NEUTROPHILS % 84.5 % (36.0-66.0); PLATELET COUNT, AUTOMATED 601 10^3/uL (150-450); WHITE BLOOD COUNT 19.9 10^3/uL (4.0-10.0)
[2021-07-30 11:16] LABS: ALBUMIN 2.1 GM/DL (3.2-5.2); ALT/SGPT 49 U/L (12-78); BILIRUBIN,TOTAL 0.4 MG/DL (0.2-1.0); BLOOD UREA NITROGEN 10 MG/DL (7-18); CALCIUM LEVEL 9.6 MG/DL (8.8-10.2); CARBON DIOXIDE LEVEL 31 MEQ/L (21-32); CHLORIDE LEVEL 97 MEQ/L (98-107); CREATININE FOR GFR 0.83 MG/DL (0.70-1.30); GLOMERULAR FILTRATION RATE > 60.0 (>49); GLUCOSE, FASTING 124 MG/DL (70-100); MAGNESIUM LEVEL 1.8 MG/DL (1.8-2.4); NT-PRO BNP 841 PG/ML (<125); POTASSIUM SERUM 4.2 MEQ/L (3.5-5.1); SODIUM LEVEL 136 MEQ/L (136-145); TOTAL PROTEIN 7.6 GM/DL (6.4-8.2)
== END ==
LOC: M PLALAB 09:46
PROVIDERS: ATTEND Physician Assistant
DX: I50.33 Acute on chronic diastolic (congestive) heart failure (principal); J44.0 Chronic obstructive pulmonary disease with (acute) lower respiratory infection
CPT/HCPCS: 36415; 80053; 83735; 83880; 85025; G0463

== ENCOUNTER → 2021-08-23 | Outpatient (CLI) | payer MEDICARE, MEDICAID ==
[2021-08-23 15:15] LABS: BASO # 0.1 10^3/uL (0.0-0.2); BASO % 0.5 % (0.0-1.0); EOS # 0.1 10^3/uL (0.0-0.5); EOS % 0.7 % (0.0-3.0); HEMATOCRIT 39.9 % (42.0-52.0); HEMOGLOBIN 12.4 g/dl (13.5-17.5); LYMPH # 1.7 10^3/uL (1.5-5.0); LYMPH % 9.3 % (24.0-44.0); MEAN CORPUSCULAR HEMOGLOBIN 28.1 pg (27.0-33.0); MEAN CORPUSCULAR HGB CONC 31.1 g/dl (32.0-36.5); MEAN CORPUSCULAR VOLUME 90.5 fl (80.0-96.0); MONO # 0.8 10^3/uL (0.0-0.8); MONO % 4.4 % (2.0-8.0); NEUTROPHILS # 15.4 10^3/uL (1.5-8.5); NEUTROPHILS % 84.1 % (36.0-66.0); PLATELET COUNT, AUTOMATED 503 10^3/uL (150-450); RED BLOOD COUNT 4.41 10^6/uL (4.30-6.10); WHITE BLOOD COUNT 18.4 10^3/uL (4.0-10.0)
[2021-08-23 15:45] LABS: ALBUMIN 2.6 GM/DL (3.2-5.2); ALT/SGPT 54 U/L (12-78); BILIRUBIN,TOTAL 0.3 MG/DL (0.2-1.0); BLOOD UREA NITROGEN 17 MG/DL (7-18); CALCIUM LEVEL 9.1 MG/DL (8.8-10.2); CARBON DIOXIDE LEVEL 26 MEQ/L (21-32); CHLORIDE LEVEL 101 MEQ/L (98-107); GLOMERULAR FILTRATION RATE > 60.0 (>49); GLUCOSE, FASTING 109 MG/DL (70-100); POTASSIUM SERUM 4.3 MEQ/L (3.5-5.1); SODIUM LEVEL 136 MEQ/L (136-145); TOTAL PROTEIN 7.6 GM/DL (6.4-8.2)
== END ==
LOC: M PLALAB 12:26
PROVIDERS: ATTEND Physician Assistant
DX: I50.33 Acute on chronic diastolic (congestive) heart failure (principal); D72.829 Elevated white blood cell count, unspecified

== ENCOUNTER → 2021-10-04 | Outpatient (CLI) | payer MEDICARE, MEDICAID ==
[2021-10-04 17:21] LABS: BASO # 0.1 10^3/uL (0.0-0.2); BASO % 0.3 % (0.0-1.0); EOS # 0.1 10^3/uL (0.0-0.5); EOS % 0.3 % (0.0-3.0); HEMATOCRIT 42.9 % (42.0-52.0); HEMOGLOBIN 13.7 g/dl (13.5-17.5); LYMPH # 1.1 10^3/uL (1.5-5.0); LYMPH % 6.3 % (24.0-44.0); MEAN CORPUSCULAR HEMOGLOBIN 27.3 pg (27.0-33.0); MEAN CORPUSCULAR HGB CONC 31.9 g/dl (32.0-36.5); MEAN CORPUSCULAR VOLUME 85.5 fl (80.0-96.0); MONO # 0.8 10^3/uL (0.0-0.8); MONO % 4.3 % (2.0-8.0); PLATELET COUNT, AUTOMATED 430 10^3/uL (150-450); RED BLOOD COUNT 5.02 10^6/uL (4.30-6.10); WHITE BLOOD COUNT 18.2 10^3/uL (4.0-10.0)
[2021-10-04 17:57] LABS: ALBUMIN 3.1 GM/DL (3.2-5.2); ALT/SGPT 13 U/L (12-78); BILIRUBIN,TOTAL 0.4 MG/DL (0.2-1.0); BLOOD UREA NITROGEN 16 MG/DL (7-18); CALCIUM LEVEL 9.9 MG/DL (8.8-10.2); CARBON DIOXIDE LEVEL 29 MEQ/L (21-32); CHLORIDE LEVEL 104 MEQ/L (98-107); CREATININE FOR GFR 0.76 MG/DL (0.70-1.30); GLOMERULAR FILTRATION RATE > 60.0 (>49); GLUCOSE, FASTING 118 MG/DL (70-100); NT-PRO BNP 320 PG/ML (<125); POTASSIUM SERUM 3.5 MEQ/L (3.5-5.1); SODIUM LEVEL 138 MEQ/L (136-145); TOTAL PROTEIN 7.9 GM/DL (6.4-8.2)
== END ==
LOC: M PLALAB 14:43
PROVIDERS: ATTEND Physician Assistant
DX: D72.829 Elevated white blood cell count, unspecified (principal); I50.33 Acute on chronic diastolic (congestive) heart failure; R19.7 Diarrhea, unspecified

== ENCOUNTER 2022-04-03 16:46 | Inpatient (IN) | payer MEDICAID, MEDICARE, OTHER ==
[~2022-04-03] VITALS: Ht 175.3 cm; Wt 51.6 kg
[~2022-04-03 16:46] MED LIST changes: +ALBU2.5V10 INH; -ALBU83IN INH
[2022-04-03] MEDS ORDERED: LATA0.0015 (17:12)
[2022-04-03] MEDS ORDERED: PRED5TA PO (17:12)
[2022-04-03] MEDS ORDERED: methylPREDNISolone 125MG 2ML VIAL IV ONE (17:30)
[2022-04-03 18:05] LABS: BASO % 0.3 % (0.0-1.0); EOS # 0.1 10^3/uL (0.0-0.5); EOS % 0.6 % (0.0-3.0); HEMATOCRIT 43.6 % (42.0-52.0); HEMOGLOBIN 13.6 g/dl (13.5-17.5); LYMPH # 1.3 10^3/uL (1.5-5.0); LYMPH % 10.3 % (24.0-44.0); MEAN CORPUSCULAR HEMOGLOBIN 28.7 pg (27.0-33.0); MEAN CORPUSCULAR HGB CONC 31.2 g/dl (32.0-36.5); MONO # 0.4 10^3/uL (0.0-0.8); MONO % 3.4 % (2.0-8.0); NEUTROPHILS # 10.7 10^3/uL (1.5-8.5); NEUTROPHILS % 84.8 % (36.0-66.0); PLATELET COUNT, AUTOMATED 363 10^3/uL (150-450); RED BLOOD COUNT 4.74 10^6/uL (4.30-6.10); WHITE BLOOD COUNT 12.6 10^3/uL (4.0-10.0)
[2022-04-03] MEDS: IPRATROPIUM 0.5MG/ALBUTEROL 2.5MG INH SOL UD 3ML (DUONEB) NEB PRN ×3 (18:09→18:31)
[2022-04-03 18:17] LABS: INR 0.88; PROTHROMBIN TIME 12.3 SECONDS (12.7-14.5)
[2022-04-03 18:23] LABS: ABG BASE EXCESS -1.1 (-2.0-2.0); ABG HCO3 22.5 MEQ/L (22.0-26.0); ABG O2 SATURATION 96.2 % (95.0-99.0); ABG PARTIAL PRESSURE CO2 34.6 mmHg (35.0-45.0); ABG PARTIAL PRESSURE O2 80.6 mmHg (75.0-100.0); ABG STANDARD HCO3 23.5 MEQ/L (22.0-26.0); ABG TOTAL CO2 23.6 MEQ/L (23.0-31.0); ABG pH (ARTERIAL) 7.431 UNITS (7.350-7.450)
[2022-04-03 18:41] LABS: CK-MB VALUE MASS < 1.0 NG/ML (<3.6); CPK CREATINE PHOSPHOKINASE 32 U/L (39-308); MB/CK RELATIVE INDEX 3.12 (< OR =4)
[2022-04-03 18:46] LABS: ALT/SGPT 15 U/L (12-78); BILIRUBIN,DIRECT < 0.1 MG/DL (0.0-0.2); BILIRUBIN,TOTAL 0.4 MG/DL (0.2-1.0); BLOOD UREA NITROGEN 7 MG/DL (7-18); CALCIUM LEVEL 8.7 MG/DL (8.8-10.2); CARBON DIOXIDE LEVEL 29 MEQ/L (21-32); CHLORIDE LEVEL 103 MEQ/L (98-107); CREATININE FOR GFR 0.89 MG/DL (0.70-1.30); GLOMERULAR FILTRATION RATE > 60.0 (>49); GLUCOSE, FASTING 100 MG/DL (70-100); NT-PRO BNP 123 PG/ML (<125); SODIUM LEVEL 136 MEQ/L (136-145); TOTAL PROTEIN 7.4 GM/DL (6.4-8.2)
[2022-04-03 19:48] LABS: CK-MB VALUE MASS < 1.0 NG/ML (<3.6); CPK CREATINE PHOSPHOKINASE 37 U/L (39-308)
[2022-04-03] MEDS ORDERED: ISOVUE-370 76% 100ML VIAL As Ordered ONE (20:04)
[2022-04-03] MEDS ORDERED: LATANOPROST 0.005% OPHTH SOLN 2.5 ML OU SCH (21:00)
[2022-04-03] MEDS ORDERED: HOME MED LIST COMPLETE! XX SCH (21:45)
[2022-04-03] MEDS ORDERED: guaiFENesin ER 600 MG TAB PO PRN (21:55)
[2022-04-03] MEDS ORDERED: ENOXAPARIN 60MG/0.6ML SYRINGE (J1650 PER 10MG) SC SCH (22:00)
[2022-04-03 22:38] LABS: LDH LACTATE DEHYDROGENASE 174 U/L (87-241)
[2022-04-04] MEDS ORDERED: REMDESIVIR 200 MG in NS 250 ML IV ONE ×2
[2022-04-04] MEDS ORDERED: IPRATROPIUM 0.5MG/ALBUTEROL 2.5MG INH SOL UD 3ML (DUONEB) NEB SCH (02:00)
[2022-04-04] MEDS ORDERED: IPRATROPIUM 0.5MG/ALBUTEROL 2.5MG INH SOL UD 3ML (DUONEB) NEB PRN (02:00)
[2022-04-04] MEDS ORDERED: SODIUM CHLORIDE 0.9% INJ 10 ML SYR IV ONE (02:00)
[2022-04-04 06:03] LABS: BASO % 0.1 % (0.0-1.0); HEMATOCRIT 39.1 % (42.0-52.0); HEMOGLOBIN 12.8 g/dl (13.5-17.5); LYMPH # 0.9 10^3/uL (1.5-5.0); LYMPH % 11.4 % (24.0-44.0); MEAN CORPUSCULAR HEMOGLOBIN 29.8 pg (27.0-33.0); MEAN CORPUSCULAR HGB CONC 32.7 g/dl (32.0-36.5); MEAN CORPUSCULAR VOLUME 90.9 fl (80.0-96.0); MONO # 0.2 10^3/uL (0.0-0.8); MONO % 2.3 % (2.0-8.0); NEUTROPHILS # 6.4 10^3/uL (1.5-8.5); NEUTROPHILS % 85.7 % (36.0-66.0); PLATELET COUNT, AUTOMATED 317 10^3/uL (150-450); WHITE BLOOD COUNT 7.5 10^3/uL (4.0-10.0)
[2022-04-04 06:48] LABS: ALBUMIN 2.8 GM/DL (3.2-5.2); ALT/SGPT 13 U/L (12-78); BILIRUBIN,DIRECT < 0.1 MG/DL (0.0-0.2); BILIRUBIN,TOTAL 0.2 MG/DL (0.2-1.0); BLOOD UREA NITROGEN 10 MG/DL (7-18); CALCIUM LEVEL 8.9 MG/DL (8.8-10.2); CARBON DIOXIDE LEVEL 26 MEQ/L (21-32); CHLORIDE LEVEL 105 MEQ/L (98-107); CREATININE FOR GFR 0.92 MG/DL (0.70-1.30); GLOMERULAR FILTRATION RATE > 60.0 (>49); GLUCOSE, FASTING 154 MG/DL (70-100); MAGNESIUM LEVEL 2.1 MG/DL (1.8-2.4); POTASSIUM SERUM 4.1 MEQ/L (3.5-5.1); SODIUM LEVEL 137 MEQ/L (136-145); TOTAL PROTEIN 6.8 GM/DL (6.4-8.2)
[2022-04-04] MEDS: ADVAIR HFA 230/21MCG INHALER INH SCH ×2 (08:24→20:00)
[2022-04-04 09:00] VITALS: O2SAT 99
[2022-04-04] MEDS ORDERED: APIXABAN 5 MG TAB (ELIQUIS) PO SCH (09:00)
[2022-04-04] MEDS ORDERED: predniSONE 5 MG TAB PO SCH (09:00)
[2022-04-04] MEDS ORDERED: PANTOPRAZOLE 40MG TAB (PROTONIX) PO SCH (09:00)
[2022-04-04] MEDS ORDERED: methylPREDNISolone 40MG 1ML VIAL IV SCH (09:00)
[2022-04-04] MEDS ORDERED: ALBUTEROL SULFATE 2.5 MG/0.5 ML INH NEB SOLN INH PRN (09:50)
[2022-04-04] MEDS ORDERED: EPINEPHrine INJ 1 MG/ML 1ML AMP IM PRN (09:50)
[2022-04-04] MEDS ORDERED: ALBUTEROL 90 MCG/ACT 8GM HFA INHALER INH PRN (09:50)
[2022-04-04] MEDS ORDERED: diphenhydrAMINE 50MG/ML VIAL (J1200) IV PRN (09:50)
[2022-04-04] MEDS ORDERED: methylPREDNISolone 125MG 2ML VIAL IV PRN (09:50)
[2022-04-04] MEDS ORDERED: BEBTELOVIMAB 175MG 2ML VIAL (EUA) IV ONE (12:00)
[2022-04-04 12:03] VITALS: BP 111/78
[2022-04-04] MEDS ORDERED: MUCI600T31 PO (12:28)
[2022-04-04] MEDS ORDERED: ELIQ5TAB PO (12:28)
[2022-04-04] MEDS ORDERED: PRED20TA PO (12:28)
[2022-04-04] MEDS ORDERED: LEVO1TAB38 PO (12:29)
[2022-04-04 12:43] VITALS: BP 142/82
[2022-04-04] MEDS ORDERED: REMDESIVIR 100 MG in NS 250 ML IV SCH (21:00)
[2022-04-04] MEDS ORDERED: SODIUM CHLORIDE 0.9% INJ 10 ML SYR IV SCH (22:00)
[2022-04-05] MEDS ORDERED: FLUBLOK(EGG FREE)(QUAD)INFLUENZA VACC 0.5ML SYRINGE 18YRS & OLDER IM.IMMUN ONE (09:00)
[2022-04-05] MEDS ORDERED: predniSONE 10 MG TAB PO SCH (09:00)
[2022-04-05] MEDS: ADVAIR HFA 230/21MCG INHALER INH SCH (15:24)
[2022-04-06] MEDS: ADVAIR HFA 230/21MCG INHALER INH SCH (15:55)
== END 2022-04-04 14:30 | disposition home or self-care (01) | DRG 177 ==
LOC: M ED 16:46 → M ED INP 21:55 → ENRESERV 04-04 12:00 → M ED INP 04-04 14:30
PROVIDERS: ADMIT Internal Medicine; ATTEND Internal Medicine
PROC: XW033E5 Introduction of Remdesivir Anti-infective into Peripheral Vein, Percutaneous Approach, New Technology Group 5 (ICD-10-PCS; principal; 2022-04-04)
DX: U07.1 COVID-19 (principal); I26.99 Other pulmonary embolism without acute cor pulmonale; J12.82 Pneumonia due to coronavirus disease 2019; J44.1 Chronic obstructive pulmonary disease with (acute) exacerbation; J96.10 Chronic respiratory failure, unspecified whether with hypoxia or hypercapnia; J44.0 Chronic obstructive pulmonary disease with (acute) lower respiratory infection; Z99.81 Dependence on supplemental oxygen; K21.9 Gastro-esophageal reflux disease without esophagitis; Z79.01 Long term (current) use of anticoagulants; Z79.52 Long term (current) use of systemic steroids; Z79.899 Other long term (current) drug therapy; Z88.8 Allergy status to other drugs, medicaments and biological substances; Z87.891 Personal history of nicotine dependence

== ENCOUNTER → 2022-05-17 | Outpatient (CLI) | payer MEDICARE, MEDICAID ==
[~2022-05-17] MED LIST changes: +ELIQ5TAB PO; +LATA0.0015; +LEVO1TAB38 PO; +MUCI600T31 PO; +PRED20TA PO; +PRED5TA PO
[2022-05-17 15:07] LABS: BASO # 0.1 10^3/uL (0.0-0.2); BASO % 0.7 % (0.0-1.0); EOS # 0.3 10^3/uL (0.0-0.5); EOS % 2.2 % (0.0-3.0); HEMATOCRIT 42.8 % (42.0-52.0); HEMOGLOBIN 13.1 g/dl (13.5-17.5); LYMPH # 2.5 10^3/uL (1.5-5.0); LYMPH % 16.2 % (24.0-44.0); MEAN CORPUSCULAR HGB CONC 30.6 g/dl (32.0-36.5); MEAN CORPUSCULAR VOLUME 91.5 fl (80.0-96.0); MONO # 0.9 10^3/uL (0.0-0.8); MONO % 5.8 % (2.0-8.0); NEUTROPHILS # 11.7 10^3/uL (1.5-8.5); NEUTROPHILS % 74.7 % (36.0-66.0); PLATELET COUNT, AUTOMATED 569 10^3/uL (150-450); RED BLOOD COUNT 4.68 10^6/uL (4.30-6.10); WHITE BLOOD COUNT 15.7 10^3/uL (4.0-10.0)
[2022-05-17 15:51] LABS: ALBUMIN 2.8 GM/DL (3.2-5.2); ALT/SGPT 39 U/L (12-78); BILIRUBIN,TOTAL 0.3 MG/DL (0.2-1.0); BLOOD UREA NITROGEN 9 MG/DL (7-18); CALCIUM LEVEL 9.4 MG/DL (8.8-10.2); CARBON DIOXIDE LEVEL 27 MEQ/L (21-32); CHLORIDE LEVEL 99 MEQ/L (98-107); CREATININE FOR GFR 0.81 MG/DL (0.70-1.30); FERRITIN 488 NG/ML (26-388); GLOMERULAR FILTRATION RATE > 60.0 (>49); GLUCOSE, FASTING 82 MG/DL (70-100); NT-PRO BNP 214 PG/ML (<125); POTASSIUM SERUM 4.1 MEQ/L (3.5-5.1); SODIUM LEVEL 136 MEQ/L (136-145); TOTAL PROTEIN 8.2 GM/DL (6.4-8.2)
[2022-05-17 16:45] LABS: TOTAL 25(OH) VITAMIN D 17.5 NG/ML (30.0-100.0); VITAMIN B12 LEVEL 645 PG/ML
[2022-05-17 16:46] LABS: FOLATE 9.6 NG/ML
[2022-05-17 18:51] LABS: APPEARANCE, URINE MANUAL CLEAR (CLEAR); BILIRUBIN, URINE MANUAL NEGATIVE (NEGATIVE); BLOOD URINE MANUAL NEGATIVE (NEGATIVE); COLOR, URINE MANUAL YELLOW (YELLOW); GLUCOSE, URINE (UA) MANUAL NEGATIVE (NEGATIVE); KETONE, URINE MANUAL NEGATIVE (NEGATIVE); LEUKOCYTE ESTERASE, URINE MAN NEGATIVE (NEGATIVE); NITRITE, URINE MANUAL NEGATIVE (NEGATIVE); PROTEIN, URINE MANUAL NEGATIVE (NEGATIVE); UROBILINOGEN, URINE MANUAL NORMAL (NORMAL)
== END ==
LOC: M LAB 13:52
PROVIDERS: ATTEND Family Medicine
DX: R53.83 Other fatigue (principal); R64 Cachexia; R61 Generalized hyperhidrosis; R06.02 Shortness of breath; Z12.5 Encounter for screening for malignant neoplasm of prostate
CPT/HCPCS: 36415; 80053; 81002; 82306; 82607; 82728; 82746; 83880; 85025; G0103

== ENCOUNTER → 2022-05-26 | Outpatient (CLI) | payer MEDICARE, MEDICAID | LOC: M RAD 11:08 | PROVIDERS: ATTEND Family Medicine | DX: R61 Generalized hyperhidrosis (principal); R53.83 Other fatigue; R06.02 Shortness of breath ==

== ENCOUNTER 2022-06-13 21:44 | Inpatient (IN) | payer MEDICARE, MEDICAID ==
[~2022-06-13] VITALS: Ht 167.6 cm; Wt 50.4 kg
[~2022-06-13 21:44] MED LIST changes: -INCR1INH IN; +INCR1INH INH; -LATA0.0015; +LATA0.0015 OU
[2022-06-14 01:32] LABS: BASO # 0.1 10^3/uL (0.0-0.2); BASO % 0.4 % (0.0-1.0); EOS % 0.2 % (0.0-3.0); HEMATOCRIT 44.2 % (42.0-52.0); HEMOGLOBIN 13.5 g/dl (13.5-17.5); LYMPH % 11.9 % (24.0-44.0); MEAN CORPUSCULAR HEMOGLOBIN 27.1 pg (27.0-33.0); MEAN CORPUSCULAR HGB CONC 30.5 g/dl (32.0-36.5); MEAN CORPUSCULAR VOLUME 88.8 fl (80.0-96.0); MONO # 0.8 10^3/uL (0.0-0.8); NEUTROPHILS # 13.5 10^3/uL (1.5-8.5); PLATELET COUNT, AUTOMATED 536 10^3/uL (150-450); RED BLOOD COUNT 4.98 10^6/uL (4.30-6.10); WHITE BLOOD COUNT 16.5 10^3/uL (4.0-10.0)
[2022-06-14 01:45] LABS: INR 1.09; PARTIAL THROMBOPLASTIN TIME 34.3 SECONDS (24.8-34.2); PROTHROMBIN TIME 14.3 SECONDS (12.5-14.5)
[2022-06-14 01:47] LABS: RSV AMPLIFICATION NEGATIVE (NEGATIVE)
[2022-06-14 02:01] LABS: ALBUMIN 3.3 G/DL (3.2-5.2); ALKALINE PHOSPHATASE 102 U/L (46-116); ALT/SGPT 22 U/L (7.0-40); AST/SGOT 18 U/L (<34); BILIRUBIN,DIRECT < 0.1 MG/DL (<0.4); BILIRUBIN,TOTAL 0.5 MG/DL (0.3-1.2); BLOOD UREA NITROGEN 12 MG/DL (9-23); CALCIUM LEVEL 10.7 MG/DL (8.3-10.6); CARBON DIOXIDE LEVEL 29 MMOL/L (20-31); CHLORIDE LEVEL 99 MMOL/L (98-107); CREATININE FOR GFR 0.87 MG/DL (0.70-1.30); GLOMERULAR FILTRATION RATE > 60.0 (>49); GLUCOSE, FASTING 94 MG/DL (74-106); POTASSIUM SERUM 4.7 MMOL/L (3.5-5.1); SODIUM LEVEL 137 MMOL/L (136-145); TOTAL PROTEIN 8.5 G/DL (5.7-8.2)
[2022-06-14] MEDS ORDERED: ISOVUE-370 76% 100ML VIAL As Ordered ONE (02:07)
[2022-06-14] MEDS ORDERED: PIPERACILLIN/TAZOBACTAM SOD 3.375 GM in D5W MINI-BAG PLUS 50 ML IV ONE (03:10)
[2022-06-14] MEDS ORDERED: ALBU8.5H INH (05:35)
[2022-06-14] MEDS ORDERED: ELIQ5TAB PO (05:35)
[2022-06-14] MEDS ORDERED: PRED5TA PO (05:35)
[2022-06-14] MEDS ORDERED: HOME MED LIST COMPLETE! XX SCH (05:35)
[2022-06-14] MEDS ORDERED: MUCI600T31 PO (05:35)
[2022-06-14] MEDS ORDERED: PRED10TA2 PO (05:35)
[2022-06-14] MEDS: NS 1,000 ML IV SCH ×2 (06:10→23:25)
[2022-06-14] MEDS ORDERED: TRANEXAMIC ACID 100 MG/ML 10ML VIAL NEB ONE (06:10)
[2022-06-14] MEDS ORDERED: ALBUTEROL SULFATE 2.5 MG/0.5 ML INH NEB SOLN NEB PRN (06:10)
[2022-06-14 07:25] LABS: HEMOGLOBIN 11.1 g/dl (13.5-17.5)
[2022-06-14] MEDS: IPRATROPIUM 0.5MG/ALBUTEROL 2.5MG INH SOL UD 3ML (DUONEB) NEB SCH ×3 (08:00→19:22)
[2022-06-14] MEDS: ADVAIR HFA 230/21MCG INHALER INH SCH ×2 (09:11→19:22)
[2022-06-14] MEDS: PIPERACILLIN/TAZOBACTAM SOD 3.375 GM in D5W MINI-BAG PLUS 50 ML IV SCH ×3 (11:11→23:56)
[2022-06-14] MEDS: DEXTROMETHORPHAN 60MG/10ML SUSP 90ML BTL(DELSYM) PO SCH ×2 (11:11→18:14)
[2022-06-14 11:35] VITALS: BP 103/55
[2022-06-14 12:06] LABS: ABG BASE EXCESS 1.7 (-2.0-2.0); ABG O2 SATURATION 99.3 % (95.0-99.0); ABG PARTIAL PRESSURE CO2 35.1 mmHg (35.0-45.0); ABG PARTIAL PRESSURE O2 168.3 mmHg (75.0-100.0); ABG TOTAL CO2 26.1 MEQ/L (23.0-31.0); ABG pH (ARTERIAL) 7.471 UNITS (7.350-7.450)
[2022-06-14 12:35] LABS: HEMATOCRIT 34.1 % (42.0-52.0); HEMOGLOBIN 10.6 g/dl (13.5-17.5)
[2022-06-14] MEDS: predniSONE 5 MG TAB PO SCH (14:35)
[2022-06-14 16:00] VITALS: BP 106/63
[2022-06-14 18:13] LABS: HEMATOCRIT 35.7 % (42.0-52.0); HEMOGLOBIN 10.9 g/dl (13.5-17.5)
[2022-06-14 20:45] VITALS: BP 104/56
[2022-06-14 23:49] VITALS: BP 126/69
[2022-06-15] VITALS (7 sets, daily range): BP systolic 98–134; BP diastolic 55–68
[2022-06-15] MEDS: IPRATROPIUM 0.5MG/ALBUTEROL 2.5MG INH SOL UD 3ML (DUONEB) NEB SCH ×4 (02:00→19:36)
[2022-06-15 06:00] LABS: BLOOD UREA NITROGEN 10 MG/DL (9-23); CALCIUM LEVEL 8.1 MG/DL (8.3-10.6); CARBON DIOXIDE LEVEL 26 MMOL/L (20-31); CHLORIDE LEVEL 104 MMOL/L (98-107); CREATININE FOR GFR 0.86 MG/DL (0.70-1.30); GLOMERULAR FILTRATION RATE > 60.0 (>49); GLUCOSE, FASTING 98 MG/DL (74-106); POTASSIUM SERUM 3.8 MMOL/L (3.5-5.1); SODIUM LEVEL 138 MMOL/L (136-145)
[2022-06-15] MEDS: PIPERACILLIN/TAZOBACTAM SOD 3.375 GM in D5W MINI-BAG PLUS 50 ML IV SCH ×4 (06:05→23:21)
[2022-06-15] MEDS: DEXTROMETHORPHAN 60MG/10ML SUSP 90ML BTL(DELSYM) PO SCH ×2 (06:05→17:40)
[2022-06-15] MEDS: ADVAIR HFA 230/21MCG INHALER INH SCH ×2 (07:23→19:36)
[2022-06-15 07:46] LABS: BASO # 0.1 10^3/uL (0.0-0.2); BASO % 0.6 % (0.0-1.0); EOS # 0.3 10^3/uL (0.0-0.5); EOS % 2.7 % (0.0-3.0); HEMATOCRIT 31.7 % (42.0-52.0); HEMOGLOBIN 9.8 g/dl (13.5-17.5); LYMPH # 1.8 10^3/uL (1.5-5.0); LYMPH % 17.9 % (24.0-44.0); MEAN CORPUSCULAR HEMOGLOBIN 27.5 pg (27.0-33.0); MEAN CORPUSCULAR HGB CONC 30.9 g/dl (32.0-36.5); MONO # 0.8 10^3/uL (0.0-0.8); MONO % 7.4 % (2.0-8.0); NEUTROPHILS # 7.2 10^3/uL (1.5-8.5); NEUTROPHILS % 70.9 % (36.0-66.0); PLATELET COUNT, AUTOMATED 388 10^3/uL (150-450); RED BLOOD COUNT 3.56 10^6/uL (4.30-6.10); WHITE BLOOD COUNT 10.2 10^3/uL (4.0-10.0)
[2022-06-15 08:26] LABS: INR 1.11; PROTHROMBIN TIME 14.5 SECONDS (12.5-14.5)
[2022-06-15 08:30] LABS: PARTIAL THROMBOPLASTIN TIME 34.1 SECONDS (24.8-34.2)
[2022-06-15] MEDS: guaiFENesin ER 600 MG TAB PO SCH ×2 (10:02→21:34)
[2022-06-15] MEDS: HEPARIN SOD (PORCINE) 5000UNITS/ML 1ML VIAL/SYRINGE SQ SCH ×2 (14:27→21:34)
[2022-06-15] MEDS ORDERED: predniSONE 10 MG TAB PO SCH (15:00)
[2022-06-16] VITALS (7 sets, daily range): BP systolic 104–160; BP diastolic 59–85
[2022-06-16] MEDS: IPRATROPIUM 0.5MG/ALBUTEROL 2.5MG INH SOL UD 3ML (DUONEB) NEB SCH ×4 (01:11→19:24)
[2022-06-16] MEDS: PIPERACILLIN/TAZOBACTAM SOD 3.375 GM in D5W MINI-BAG PLUS 50 ML IV SCH ×2 (04:11→11:14)
[2022-06-16] MEDS: NS 1,000 ML IV SCH ×2 (04:11→17:12)
[2022-06-16 05:13] LABS: BASO # 0.1 10^3/uL (0.0-0.2); BASO % 0.5 % (0.0-1.0); EOS # 0.2 10^3/uL (0.0-0.5); EOS % 1.4 % (0.0-3.0); HEMATOCRIT 31.4 % (42.0-52.0); HEMOGLOBIN 9.6 g/dl (13.5-17.5); LYMPH # 1.9 10^3/uL (1.5-5.0); LYMPH % 15.7 % (24.0-44.0); MEAN CORPUSCULAR HEMOGLOBIN 27.4 pg (27.0-33.0); MEAN CORPUSCULAR HGB CONC 30.6 g/dl (32.0-36.5); MEAN CORPUSCULAR VOLUME 89.7 fl (80.0-96.0); MONO # 0.9 10^3/uL (0.0-0.8); MONO % 7.7 % (2.0-8.0); NEUTROPHILS # 8.9 10^3/uL (1.5-8.5); NEUTROPHILS % 74.2 % (36.0-66.0); PLATELET COUNT, AUTOMATED 401 10^3/uL (150-450)
[2022-06-16] MEDS: HEPARIN SOD (PORCINE) 5000UNITS/ML 1ML VIAL/SYRINGE SQ SCH (05:24)
[2022-06-16] MEDS: DEXTROMETHORPHAN 60MG/10ML SUSP 90ML BTL(DELSYM) PO SCH ×2 (05:25→17:12)
[2022-06-16 05:43] LABS: BLOOD UREA NITROGEN 8 MG/DL (9-23); CALCIUM LEVEL 7.9 MG/DL (8.3-10.6); CARBON DIOXIDE LEVEL 24 MMOL/L (20-31); CHLORIDE LEVEL 108 MMOL/L (98-107); CREATININE FOR GFR 0.77 MG/DL (0.70-1.30); GLOMERULAR FILTRATION RATE > 60.0 (>49); GLUCOSE, FASTING 103 MG/DL (74-106); POTASSIUM SERUM 3.6 MMOL/L (3.5-5.1); SODIUM LEVEL 140 MMOL/L (136-145)
[2022-06-16] MEDS: ADVAIR HFA 230/21MCG INHALER INH SCH ×2 (08:34→19:24)
[2022-06-16] MEDS: guaiFENesin ER 600 MG TAB PO SCH ×2 (09:15→20:36)
[2022-06-16] MEDS: LevoFLOXacin 750 MG TABLET PO SCH (14:43)
[2022-06-16] MEDS: predniSONE 5 MG TAB PO SCH (14:43)
[2022-06-16] MEDS ORDERED: cefTRIAXone SOD 1 GM in D5W MINI-BAG PLUS 50 ML IV SCH (15:00)
[2022-06-16 18:07] LABS: MYCOPLASMA PNEUMONIAE IgG 1239 U/mL (0-99); MYCOPLASMA PNEUMONIAE IgM <770 U/mL (0-769)
[2022-06-16] MEDS: APIXABAN 5 MG TAB (ELIQUIS) PO SCH (20:36)
[2022-06-17] VITALS (9 sets, daily range): BP systolic 114–152; BP diastolic 65–92
[2022-06-17] MEDS: IPRATROPIUM 0.5MG/ALBUTEROL 2.5MG INH SOL UD 3ML (DUONEB) NEB SCH ×2 (02:21→07:42)
[2022-06-17] MEDS: NS 1,000 ML IV SCH (03:51)
[2022-06-17] MEDS: DEXTROMETHORPHAN 60MG/10ML SUSP 90ML BTL(DELSYM) PO SCH ×2 (05:29→17:17)
[2022-06-17] MEDS: LevoFLOXacin 750 MG TABLET PO SCH (05:29)
[2022-06-17 05:42] LABS: BASO # 0.1 10^3/uL (0.0-0.2); BASO % 0.6 % (0.0-1.0); EOS # 0.2 10^3/uL (0.0-0.5); EOS % 1.4 % (0.0-3.0); HEMATOCRIT 35.7 % (42.0-52.0); HEMOGLOBIN 10.9 g/dl (13.5-17.5); LYMPH # 1.9 10^3/uL (1.5-5.0); LYMPH % 14.8 % (24.0-44.0); MEAN CORPUSCULAR HEMOGLOBIN 27.3 pg (27.0-33.0); MEAN CORPUSCULAR HGB CONC 30.5 g/dl (32.0-36.5); MEAN CORPUSCULAR VOLUME 89.3 fl (80.0-96.0); MONO # 0.9 10^3/uL (0.0-0.8); MONO % 7.3 % (2.0-8.0); NEUTROPHILS # 9.5 10^3/uL (1.5-8.5); NEUTROPHILS % 75.4 % (36.0-66.0); PLATELET COUNT, AUTOMATED 450 10^3/uL (150-450); WHITE BLOOD COUNT 12.6 10^3/uL (4.0-10.0)
[2022-06-17 06:03] LABS: BLOOD UREA NITROGEN 8 MG/DL (9-23); CALCIUM LEVEL 8.6 MG/DL (8.3-10.6); CARBON DIOXIDE LEVEL 22 MMOL/L (20-31); CHLORIDE LEVEL 106 MMOL/L (98-107); CREATININE FOR GFR 0.67 MG/DL (0.70-1.30); GLOMERULAR FILTRATION RATE > 60.0 (>49); GLUCOSE, FASTING 104 MG/DL (74-106); POTASSIUM SERUM 3.9 MMOL/L (3.5-5.1); SODIUM LEVEL 141 MMOL/L (136-145)
[2022-06-17] MEDS: ADVAIR HFA 230/21MCG INHALER INH SCH ×2 (07:42→21:32)
[2022-06-17] MEDS: APIXABAN 5 MG TAB (ELIQUIS) PO SCH ×2 (08:13→21:34)
[2022-06-17] MEDS: guaiFENesin ER 600 MG TAB PO SCH ×2 (08:13→21:34)
[2022-06-17] MEDS ORDERED: ISOVUE-370 76% 100ML VIAL As Ordered ONE (09:34)
[2022-06-17] MEDS ORDERED: LEVALBUTEROL HFA 45MCG/ACT 15 GM INHALER INH PRN (10:05)
[2022-06-17] MEDS: IPRATROPIUM HFA INHALER 12.9 GRAMS (ATROVENT HFA) INH SCH ×2 (13:46→21:32)
[2022-06-17] MEDS: PIPERACILLIN/TAZOBACTAM SOD 3.375 GM in D5W MINI-BAG PLUS 50 ML IV SCH ×2 (15:50→21:34)
[2022-06-17] MEDS: predniSONE 20 MG TAB PO SCH (15:50)
[2022-06-17] MEDS ORDERED: PIPERACILLIN/TAZOBACTAM SOD 4.5 GM in D5W MINI-BAG PLUS 50 ML IV SCH (16:00)
[2022-06-17] MEDS ORDERED: METOPROLOL TART 25 MG TABLET PO ONE (17:35)
[2022-06-17 17:57] LABS: ABG HCO3 22.1 MEQ/L (22.0-26.0); ABG O2 SATURATION 98.9 % (95.0-99.0); ABG PARTIAL PRESSURE CO2 28.6 mmHg (35.0-45.0); ABG STANDARD HCO3 24.6 MEQ/L (22.0-26.0); ABG TOTAL CO2 22.9 MEQ/L (23.0-31.0); ABG pH (ARTERIAL) 7.505 UNITS (7.350-7.450)
[2022-06-18 00:14] VITALS: BP 124/60
[2022-06-18 01:30] LABS: CPK CREATINE PHOSPHOKINASE 42 U/L (46-171)
[2022-06-18 01:34] LABS: CK-MB VALUE MASS < 1.0 NG/ML (<3.6); MB/CK RELATIVE INDEX 2.38 (< OR =4)
[2022-06-18] MEDS: IPRATROPIUM HFA INHALER 12.9 GRAMS (ATROVENT HFA) INH SCH ×4 (02:00→20:14)
[2022-06-18] MEDS: PIPERACILLIN/TAZOBACTAM SOD 3.375 GM in D5W MINI-BAG PLUS 50 ML IV SCH ×4 (05:22→21:58)
[2022-06-18 05:24] VITALS: BP 117/63
[2022-06-18 06:35] LABS: BASO % 0.2 % (0.0-1.0); EOS % 0.1 % (0.0-3.0); HEMATOCRIT 38.3 % (42.0-52.0); HEMOGLOBIN 11.9 g/dl (13.5-17.5); LYMPH # 1.2 10^3/uL (1.5-5.0); LYMPH % 7.5 % (24.0-44.0); MEAN CORPUSCULAR HEMOGLOBIN 27.4 pg (27.0-33.0); MEAN CORPUSCULAR HGB CONC 31.1 g/dl (32.0-36.5); MEAN CORPUSCULAR VOLUME 88.2 fl (80.0-96.0); MONO # 1.3 10^3/uL (0.0-0.8); MONO % 7.9 % (2.0-8.0); NEUTROPHILS # 13.6 10^3/uL (1.5-8.5); NEUTROPHILS % 83.7 % (36.0-66.0); PLATELET COUNT, AUTOMATED 463 10^3/uL (150-450); RED BLOOD COUNT 4.34 10^6/uL (4.30-6.10); WHITE BLOOD COUNT 16.2 10^3/uL (4.0-10.0)
[2022-06-18] MEDS: DEXTROMETHORPHAN 60MG/10ML SUSP 90ML BTL(DELSYM) PO SCH ×2 (06:35→17:11)
[2022-06-18 07:10] LABS: BLOOD UREA NITROGEN 13 MG/DL (9-23); CALCIUM LEVEL 9.3 MG/DL (8.3-10.6); CARBON DIOXIDE LEVEL 24 MMOL/L (20-31); CHLORIDE LEVEL 104 MMOL/L (98-107); CREATININE FOR GFR 0.74 MG/DL (0.70-1.30); GLOMERULAR FILTRATION RATE > 60.0 (>49); GLUCOSE, FASTING 110 MG/DL (74-106); POTASSIUM SERUM 4.2 MMOL/L (3.5-5.1); SODIUM LEVEL 140 MMOL/L (136-145)
[2022-06-18] MEDS: ADVAIR HFA 230/21MCG INHALER INH SCH ×2 (07:24→20:14)
[2022-06-18 08:11] VITALS: BP 121/62
[2022-06-18] MEDS: guaiFENesin ER 600 MG TAB PO SCH ×2 (08:57→21:58)
[2022-06-18] MEDS: predniSONE 20 MG TAB PO SCH (08:57)
[2022-06-18] MEDS: APIXABAN 5 MG TAB (ELIQUIS) PO SCH ×2 (08:57→21:58)
[2022-06-18 12:00] VITALS: BP 122/60
[2022-06-18 15:47] VITALS: BP 122/68
[2022-06-18 20:58] VITALS: BP 109/65
[2022-06-19 00:44] VITALS: BP 124/68
[2022-06-19] MEDS: IPRATROPIUM HFA INHALER 12.9 GRAMS (ATROVENT HFA) INH SCH ×2 (02:00→07:31)
[2022-06-19 04:58] VITALS: BP 109/59
[2022-06-19] MEDS: PIPERACILLIN/TAZOBACTAM SOD 3.375 GM in D5W MINI-BAG PLUS 50 ML IV SCH ×2 (05:03→09:50)
[2022-06-19] MEDS: DEXTROMETHORPHAN 60MG/10ML SUSP 90ML BTL(DELSYM) PO SCH (05:04)
[2022-06-19 07:02] LABS: BASO # 0.1 10^3/uL (0.0-0.2); BASO % 0.3 % (0.0-1.0); EOS # 0.2 10^3/uL (0.0-0.5); EOS % 1.3 % (0.0-3.0); HEMATOCRIT 36.4 % (42.0-52.0); HEMOGLOBIN 11.2 g/dl (13.5-17.5); LYMPH # 2.1 10^3/uL (1.5-5.0); LYMPH % 14.4 % (24.0-44.0); MEAN CORPUSCULAR HEMOGLOBIN 27.5 pg (27.0-33.0); MEAN CORPUSCULAR HGB CONC 30.8 g/dl (32.0-36.5); MEAN CORPUSCULAR VOLUME 89.2 fl (80.0-96.0); MONO % 6.4 % (2.0-8.0); NEUTROPHILS # 11.4 10^3/uL (1.5-8.5); NEUTROPHILS % 77.1 % (36.0-66.0); PLATELET COUNT, AUTOMATED 466 10^3/uL (150-450); RED BLOOD COUNT 4.08 10^6/uL (4.30-6.10); WHITE BLOOD COUNT 14.8 10^3/uL (4.0-10.0)
[2022-06-19 07:22] LABS: MAGNESIUM LEVEL 1.9 MG/DL (1.8-2.4)
[2022-06-19 07:29] LABS: BLOOD UREA NITROGEN 17 MG/DL (9-23); CALCIUM LEVEL 8.9 MG/DL (8.3-10.6); CARBON DIOXIDE LEVEL 28 MMOL/L (20-31); CHLORIDE LEVEL 104 MMOL/L (98-107); CREATININE FOR GFR 0.78 MG/DL (0.70-1.30); GLOMERULAR FILTRATION RATE > 60.0 (>49); GLUCOSE, FASTING 106 MG/DL (74-106); POTASSIUM SERUM 3.7 MMOL/L (3.5-5.1); SODIUM LEVEL 140 MMOL/L (136-145)
[2022-06-19] MEDS: ADVAIR HFA 230/21MCG INHALER INH SCH (07:30)
[2022-06-19 08:01] VITALS: BP 138/69
[2022-06-19] MEDS ORDERED: METO1TAB87 PO (08:22)
[2022-06-19] MEDS ORDERED: PRED20TA PO (08:22)
[2022-06-19] MEDS ORDERED: COMBAER6 INH (08:22)
[2022-06-19] MEDS ORDERED: IPRA0.00 INH (08:22)
[2022-06-19] MEDS ORDERED: PRED10TA2 PO (08:22)
[2022-06-19] MEDS ORDERED: MOXI1TAB PO (08:22)
[2022-06-19] MEDS ORDERED: BENZ200C70 PO (09:25)
[2022-06-19] MEDS: predniSONE 20 MG TAB PO SCH (09:50)
[2022-06-19] MEDS: guaiFENesin ER 600 MG TAB PO SCH (09:50)
[2022-06-19] MEDS: APIXABAN 5 MG TAB (ELIQUIS) PO SCH (09:50)
== END 2022-06-19 11:26 | disposition home health service (06) | DRG 177 ==
LOC: M ED 21:44 → M ED INP 06-14 06:09 → M PCU 06-14 23:30
PROVIDERS: ADMIT Internal Medicine; ATTEND Internal Medicine
PROC: B246ZZZ Ultrasonography of Right and Left Heart (ICD-10-PCS; principal; 2022-06-17)
DX: J15.0 Pneumonia due to Klebsiella pneumoniae (principal); I26.99 Other pulmonary embolism without acute cor pulmonale; E43 Unspecified severe protein-calorie malnutrition; J96.11 Chronic respiratory failure with hypoxia; J44.1 Chronic obstructive pulmonary disease with (acute) exacerbation; Z68.1 Body mass index [BMI] 19.9 or less, adult; R91.1 Solitary pulmonary nodule; Z87.891 Personal history of nicotine dependence; Z86.16 Personal history of COVID-19; Z79.01 Long term (current) use of anticoagulants; Z79.52 Long term (current) use of systemic steroids; Z79.899 Other long term (current) drug therapy; Z88.8 Allergy status to other drugs, medicaments and biological substances; Z80.1 Family history of malignant neoplasm of trachea, bronchus and lung; Z99.81 Dependence on supplemental oxygen

== ENCOUNTER 2022-06-24 13:43 | Emergency (ER) | payer MEDICARE, MEDICAID ==
[~2022-06-24] VITALS: Ht 177.8 cm; Wt 51.4 kg
[~2022-06-24 13:43] MED LIST changes: +ALBU8.5H INH; +BENZ200C70 PO; +COMBAER6 INH; +IPRA0.00 INH; +METO1TAB87 PO; +MOXI1TAB PO
[2022-06-24 15:25] LABS: BASO # 0.1 10^3/uL (0.0-0.2); BASO % 0.3 % (0.0-1.0); EOS # 0.3 10^3/uL (0.0-0.5); EOS % 1.6 % (0.0-3.0); HEMATOCRIT 41.9 % (42.0-52.0); LYMPH # 3.4 10^3/uL (1.5-5.0); LYMPH % 16.6 % (24.0-44.0); MEAN CORPUSCULAR HEMOGLOBIN 27.7 pg (27.0-33.0); MEAN CORPUSCULAR VOLUME 89.3 fl (80.0-96.0); MONO # 1.4 10^3/uL (0.0-0.8); MONO % 6.8 % (2.0-8.0); NEUTROPHILS # 15.2 10^3/uL (1.5-8.5); NEUTROPHILS % 73.6 % (36.0-66.0); PLATELET COUNT, AUTOMATED 553 10^3/uL (150-450); RED BLOOD COUNT 4.69 10^6/uL (4.30-6.10); WHITE BLOOD COUNT 20.6 10^3/uL (4.0-10.0)
[2022-06-24 15:43] LABS: CK-MB VALUE MASS < 1.0 NG/ML (<3.6)
[2022-06-24 15:45] LABS: BILIRUBIN,DIRECT < 0.1 MG/DL (<0.4)
[2022-06-24 15:49] LABS: ALBUMIN 2.7 G/DL (3.2-5.2); ALKALINE PHOSPHATASE 84 U/L (46-116); ALT/SGPT 60 U/L (7.0-40); AST/SGOT 42 U/L (<34); BILIRUBIN,TOTAL 0.2 MG/DL (0.3-1.2); BLOOD UREA NITROGEN 23 MG/DL (9-23); CALCIUM LEVEL 9.4 MG/DL (8.3-10.6); CARBON DIOXIDE LEVEL 24 MMOL/L (20-31); CHLORIDE LEVEL 102 MMOL/L (98-107); CPK CREATINE PHOSPHOKINASE 30 U/L (46-171); CREATININE FOR GFR 0.81 MG/DL (0.70-1.30); GLOMERULAR FILTRATION RATE > 60.0 (>49); GLUCOSE, FASTING 76 MG/DL (74-106); MB/CK RELATIVE INDEX 3.33 (< OR =4); POTASSIUM SERUM 4.3 MMOL/L (3.5-5.1); SODIUM LEVEL 137 MMOL/L (136-145); TOTAL PROTEIN 7.3 G/DL (5.7-8.2)
[2022-06-24] MEDS ORDERED: ISOVUE-370 76% 100ML VIAL As Ordered ONE (16:03)
[2022-06-24 16:04] LABS: RSV AMPLIFICATION NEGATIVE (NEGATIVE)
[2022-06-24 17:03] LABS: CK-MB VALUE MASS < 1.0 NG/ML (<3.6)
[2022-06-24 17:06] LABS: CPK CREATINE PHOSPHOKINASE 19 U/L (46-171); MB/CK RELATIVE INDEX 5.26 (< OR =4)
[2022-06-24 17:45] VITALS: BP 147/80
== END 2022-06-24 18:54 | disposition home or self-care (01) ==
LOC: M ED 13:43
DX: I26.99 Other pulmonary embolism without acute cor pulmonale (principal); R00.0 Tachycardia, unspecified; I51.7 Cardiomegaly; I25.2 Old myocardial infarction; J44.9 Chronic obstructive pulmonary disease, unspecified; Z88.8 Allergy status to other drugs, medicaments and biological substances; Z87.891 Personal history of nicotine dependence; Z79.01 Long term (current) use of anticoagulants; Z79.51 Long term (current) use of inhaled steroids; Z79.899 Other long term (current) drug therapy
CPT/HCPCS: 36415; 71045; 71275; 80048; 80076; 82550; 82553; 83605; 84484; 85025; 87040; 87631; 93005; 93041; 94760; 99285; Q9967

== ENCOUNTER → 2022-07-21 | Outpatient (CLI) | payer MEDICARE, MEDICAID ==
[2022-07-21 14:11] LABS: BASO # 0.1 10^3/uL (0.0-0.2); BASO % 0.7 % (0.0-1.0); EOS # 0.1 10^3/uL (0.0-0.5); EOS % 0.9 % (0.0-3.0); HEMATOCRIT 44.8 % (42.0-52.0); HEMOGLOBIN 13.6 g/dl (13.5-17.5); LYMPH # 2.2 10^3/uL (1.5-5.0); LYMPH % 13.7 % (24.0-44.0); MEAN CORPUSCULAR HEMOGLOBIN 26.6 pg (27.0-33.0); MEAN CORPUSCULAR HGB CONC 30.4 g/dl (32.0-36.5); MEAN CORPUSCULAR VOLUME 87.7 fl (80.0-96.0); MONO # 1.2 10^3/uL (0.0-0.8); MONO % 7.3 % (2.0-8.0); NEUTROPHILS # 12.4 10^3/uL (1.5-8.5); NEUTROPHILS % 76.8 % (36.0-66.0); PLATELET COUNT, AUTOMATED 492 10^3/uL (150-450); RED BLOOD COUNT 5.11 10^6/uL (4.30-6.10); WHITE BLOOD COUNT 16.2 10^3/uL (4.0-10.0)
[2022-07-21 14:33] LABS: ERYTHROCYTE SEDIMENTATION RATE 130 mm/hr (0-20)
[2022-07-21 14:40] LABS: ALBUMIN 3.1 G/DL (3.2-5.2); ALKALINE PHOSPHATASE 105 U/L (46-116); ALT/SGPT 22 U/L (7.0-40); AST/SGOT 19 U/L (<34); BILIRUBIN,TOTAL 0.5 MG/DL (0.3-1.2); BLOOD UREA NITROGEN 12 MG/DL (9-23); CALCIUM LEVEL 10.1 MG/DL (8.3-10.6); CARBON DIOXIDE LEVEL 28 MMOL/L (20-31); CHLORIDE LEVEL 100 MMOL/L (98-107); CREATININE FOR GFR 0.87 MG/DL (0.70-1.30); GLOMERULAR FILTRATION RATE > 60.0 (>49); GLUCOSE, FASTING 76 MG/DL (74-106); POTASSIUM SERUM 4.2 MMOL/L (3.5-5.1); SODIUM LEVEL 136 MMOL/L (136-145); TOTAL PROTEIN 7.7 G/DL (5.7-8.2)
== END ==
LOC: M PLALAB 12:00
PROVIDERS: ATTEND Internal Medicine Infectious Disease
DX: J85.2 Abscess of lung without pneumonia (principal)

== ENCOUNTER → 2022-08-15 | Outpatient (CLI) | payer MEDICAID, MEDICARE, OTHER ==
[~2022-08-15] MED LIST changes: +AMOX875T2 PO
[2022-08-15 15:42] LABS: BASO # 0.1 10^3/uL (0.0-0.2); BASO % 0.7 % (0.0-1.0); EOS # 0.3 10^3/uL (0.0-0.5); EOS % 1.9 % (0.0-3.0); HEMATOCRIT 41.9 % (42.0-52.0); HEMOGLOBIN 12.7 g/dl (13.5-17.5); LYMPH # 2.5 10^3/uL (1.5-5.0); LYMPH % 14.7 % (24.0-44.0); MEAN CORPUSCULAR HEMOGLOBIN 26.5 pg (27.0-33.0); MEAN CORPUSCULAR HGB CONC 30.3 g/dl (32.0-36.5); MEAN CORPUSCULAR VOLUME 87.3 fl (80.0-96.0); MONO # 1.2 10^3/uL (0.0-0.8); NEUTROPHILS # 12.9 10^3/uL (1.5-8.5); NEUTROPHILS % 75.1 % (36.0-66.0); PLATELET COUNT, AUTOMATED 344 10^3/uL (150-450); WHITE BLOOD COUNT 17.2 10^3/uL (4.0-10.0)
[2022-08-15 16:06] LABS: ERYTHROCYTE SEDIMENTATION RATE 127 mm/hr (0-20)
== END ==
LOC: M PLALAB 13:45
PROVIDERS: ATTEND Internal Medicine Infectious Disease
DX: J85.2 Abscess of lung without pneumonia (principal)

== ENCOUNTER → 2022-09-15 | Outpatient (CLI) | payer MEDICARE, MEDICAID ==
[~2022-09-15] MED LIST changes: -AMOX875T2 PO; +ISOVUE-370 76% 100ML VIAL As Ordered ONE
== END ==
LOC: M RAD 12:41
PROVIDERS: ATTEND Internal Medicine Infectious Disease
DX: J85.2 Abscess of lung without pneumonia (principal); J43.9 Emphysema, unspecified; J84.10 Pulmonary fibrosis, unspecified; Z86.711 Personal history of pulmonary embolism
CPT/HCPCS: 71260; Q9967

== ENCOUNTER → 2022-09-19 | Outpatient (CLI) | payer MEDICARE, MEDICAID ==
[~2022-09-19] MED LIST changes: -ISOVUE-370 76% 100ML VIAL As Ordered ONE
[2022-09-19 18:08] LABS: BASO # 0.1 10^3/uL (0.0-0.2); BASO % 0.6 % (0.0-1.0); EOS # 0.3 10^3/uL (0.0-0.5); EOS % 1.7 % (0.0-3.0); HEMATOCRIT 44.6 % (42.0-52.0); HEMOGLOBIN 13.4 g/dl (13.5-17.5); LYMPH # 2.1 10^3/uL (1.5-5.0); LYMPH % 14.4 % (24.0-44.0); MEAN CORPUSCULAR HEMOGLOBIN 26.3 pg (27.0-33.0); MEAN CORPUSCULAR VOLUME 87.6 fl (80.0-96.0); MONO # 1.1 10^3/uL (0.0-0.8); MONO % 7.3 % (2.0-8.0); NEUTROPHILS % 75.4 % (36.0-66.0); PLATELET COUNT, AUTOMATED 443 10^3/uL (150-450); RED BLOOD COUNT 5.09 10^6/uL (4.30-6.10); WHITE BLOOD COUNT 14.5 10^3/uL (4.0-10.0)
[2022-09-19 18:28] LABS: ERYTHROCYTE SEDIMENTATION RATE > 130 mm/hr (0-20)
[2022-09-19 18:34] LABS: ALKALINE PHOSPHATASE 100 U/L (46-116); ALT/SGPT 36 U/L (7.0-40); AST/SGOT 20 U/L (<34); BILIRUBIN,TOTAL 0.3 MG/DL (0.3-1.2); BLOOD UREA NITROGEN 10 MG/DL (9-23); CALCIUM LEVEL 9.6 MG/DL (8.3-10.6); CARBON DIOXIDE LEVEL 30 MMOL/L (20-31); CHLORIDE LEVEL 102 MMOL/L (98-107); CREATININE FOR GFR 0.83 MG/DL (0.70-1.30); GLOMERULAR FILTRATION RATE > 60.0 (>49); GLUCOSE, FASTING 81 MG/DL (74-106); POTASSIUM SERUM 4.1 MMOL/L (3.5-5.1); SODIUM LEVEL 141 MMOL/L (136-145); TOTAL PROTEIN 7.3 G/DL (5.7-8.2)
== END ==
LOC: M PLALAB 14:33
PROVIDERS: ATTEND Internal Medicine Infectious Disease
DX: J85.2 Abscess of lung without pneumonia (principal); R04.2 Hemoptysis

== ENCOUNTER → 2022-10-12 | Outpatient (REF) | payer MEDICARE, MEDICAID ==
[~2022-10-12] MED LIST changes: +AMOX875T2 PO
== END ==
LOC: M SFHCPLAZ 12:51
PROVIDERS: ATTEND Internal Medicine Infectious Disease
DX: R04.2 Hemoptysis (principal)

== ENCOUNTER 2022-10-17 16:30 | Emergency (ER) | payer MEDICARE, MEDICAID ==
[~2022-10-17] VITALS: Ht 180.3 cm; Wt 54.7 kg
[~2022-10-17 16:30] MED LIST changes: -AMOX875T2 PO
[2022-10-17 18:52] LABS: BASO # 0.1 10^3/uL (0.0-0.2); BASO % 0.3 % (0.0-1.0); EOS # 0.1 10^3/uL (0.0-0.5); EOS % 0.8 % (0.0-3.0); HEMOGLOBIN 11.9 g/dl (13.5-17.5); LYMPH # 1.1 10^3/uL (1.5-5.0); LYMPH % 6.4 % (24.0-44.0); MEAN CORPUSCULAR HEMOGLOBIN 25.9 pg (27.0-33.0); MEAN CORPUSCULAR HGB CONC 30.5 g/dl (32.0-36.5); MONO # 0.8 10^3/uL (0.0-0.8); MONO % 4.8 % (2.0-8.0); NEUTROPHILS # 14.5 10^3/uL (1.5-8.5); NEUTROPHILS % 87.2 % (36.0-66.0); PLATELET COUNT, AUTOMATED 365 10^3/uL (150-450); RED BLOOD COUNT 4.59 10^6/uL (4.30-6.10); WHITE BLOOD COUNT 16.6 10^3/uL (4.0-10.0)
[2022-10-17 19:15] LABS: BLOOD UREA NITROGEN 12 MG/DL (9-23); CALCIUM LEVEL 9.7 MG/DL (8.3-10.6); CARBON DIOXIDE LEVEL 33 MMOL/L (20-31); CHLORIDE LEVEL 101 MMOL/L (98-107); CK-MB VALUE MASS < 1.0 NG/ML (<3.6); CPK CREATINE PHOSPHOKINASE 27 U/L (46-171); CREATININE FOR GFR 0.91 MG/DL (0.70-1.30); GLOMERULAR FILTRATION RATE > 60.0 (>49); GLUCOSE, FASTING 114 MG/DL (74-106); POTASSIUM SERUM 3.8 MMOL/L (3.5-5.1); SODIUM LEVEL 138 MMOL/L (136-145)
[2022-10-17 19:21] LABS: INR 1.25
[2022-10-17] MEDS ORDERED: ISOVUE-370 76% 100ML VIAL As Ordered ONE (19:24)
[2022-10-17 19:42] LABS: RSV AMPLIFICATION NEGATIVE (NEGATIVE)
[2022-10-17 20:43] VITALS: BP 107/60
[2022-10-17] MEDS ORDERED: AUGMENTIN 875 MG TAB PO ONE (21:35)
[2022-10-17] MEDS ORDERED: AMOX875T2 PO (21:36)
== END 2022-10-17 21:55 | disposition home or self-care (01) ==
LOC: M ED 16:30
DX: R04.2 Hemoptysis (principal); R91.1 Solitary pulmonary nodule; J43.9 Emphysema, unspecified; J44.9 Chronic obstructive pulmonary disease, unspecified; Z87.01 Personal history of pneumonia (recurrent); Z79.01 Long term (current) use of anticoagulants; Z79.899 Other long term (current) drug therapy; Z88.8 Allergy status to other drugs, medicaments and biological substances
CPT/HCPCS: 71046; 71275; 80048; 82550; 82553; 84484; 85025; 85610; 85730; 87631; 93005; 94760; 99284; Q9967

== ENCOUNTER → 2022-10-25 | Outpatient (REF) | payer MEDICARE, MEDICAID ==
[~2022-10-25] MED LIST changes: +AMOX875T2 PO
== END ==
LOC: M SFHCPLAZ 15:22
PROVIDERS: ATTEND Family Medicine
DX: J85.2 Abscess of lung without pneumonia (principal); E55.9 Vitamin D deficiency, unspecified

== ENCOUNTER → 2022-10-25 | Outpatient (CLI) | payer MEDICARE, MEDICAID | LOC: M PLALAB 15:23 | PROVIDERS: ATTEND Internal Medicine Pulmonary Disease | DX: J43.1 Panlobular emphysema (principal) ==

== ENCOUNTER → 2022-10-25 | Outpatient (CLI) | payer MEDICARE, MEDICAID ==
[2022-10-25 17:54] LABS: BASO # 0.1 10^3/uL (0.0-0.2); BASO % 0.7 % (0.0-1.0); EOS # 0.3 10^3/uL (0.0-0.5); EOS % 1.8 % (0.0-3.0); HEMATOCRIT 44.2 % (42.0-52.0); HEMOGLOBIN 13.5 g/dl (13.5-17.5); LYMPH % 18.6 % (24.0-44.0); MEAN CORPUSCULAR HEMOGLOBIN 26.8 pg (27.0-33.0); MEAN CORPUSCULAR HGB CONC 30.5 g/dl (32.0-36.5); MEAN CORPUSCULAR VOLUME 87.9 fl (80.0-96.0); MONO # 1.3 10^3/uL (0.0-0.8); MONO % 8.2 % (2.0-8.0); NEUTROPHILS # 11.1 10^3/uL (1.5-8.5); NEUTROPHILS % 69.7 % (36.0-66.0); PLATELET COUNT, AUTOMATED 418 10^3/uL (150-450); RED BLOOD COUNT 5.03 10^6/uL (4.30-6.10)
[2022-10-25 18:08] LABS: ERYTHROCYTE SEDIMENTATION RATE 121 mm/hr (0-20)
[2022-10-25 18:41] LABS: TOTAL 25(OH) VITAMIN D 46.2 NG/ML (20.0-100.0)
== END ==
LOC: M PLALAB 15:25
PROVIDERS: ATTEND Family Medicine
DX: J85.2 Abscess of lung without pneumonia (principal); E55.9 Vitamin D deficiency, unspecified

== ENCOUNTER 2022-12-19 17:08 | Emergency (ER) | payer MEDICARE, MEDICAID ==
[~2022-12-19] VITALS: Ht 180.3 cm; Wt 55.9 kg
[2022-12-19] MEDS ORDERED: MUCI600T31 PO (17:18)
[2022-12-19 20:07] LABS: CK-MB VALUE MASS < 1.0 NG/ML (<3.6)
[2022-12-19 20:11] LABS: ALBUMIN 2.9 G/DL (3.2-5.2); ALKALINE PHOSPHATASE 85 U/L (46-116); ALT/SGPT 22 U/L (7.0-40); AST/SGOT 15 U/L (<34); BILIRUBIN,DIRECT 0.1 MG/DL (<0.4); BILIRUBIN,TOTAL 0.5 MG/DL (0.3-1.2); BLOOD UREA NITROGEN 11 MG/DL (9-23); CALCIUM LEVEL 9.6 MG/DL (8.3-10.6); CARBON DIOXIDE LEVEL 28 MMOL/L (20-31); CHLORIDE LEVEL 101 MMOL/L (98-107); CPK CREATINE PHOSPHOKINASE 31 U/L (46-171); CREATININE FOR GFR 0.95 MG/DL (0.70-1.30); GLOMERULAR FILTRATION RATE > 60.0 (>49); GLUCOSE, FASTING 114 MG/DL (74-106); MB/CK RELATIVE INDEX 3.22 (< OR =4); SODIUM LEVEL 137 MMOL/L (136-145); TOTAL PROTEIN 7.2 G/DL (5.7-8.2)
[2022-12-19 20:12] LABS: THYROID STIMULATING HORMONE 0.631 uIU/ML (0.55-4.78); THYROXINE (T4) 10.3 UG/DL (4.5-10.9)
[2022-12-20 05:51] VITALS: BP 119/74; TEMP 98.8
[2022-12-20] MEDS ORDERED: methylPREDNISolone 125MG 2ML VIAL IV ONE (06:25)
[2022-12-20 06:32] LABS: RSV AMPLIFICATION NEGATIVE (NEGATIVE)
[2022-12-20] MEDS: IPRATROPIUM 0.5MG/ALBUTEROL 2.5MG INH SOL UD 3ML (DUONEB) NEB SCH ×2 (06:38→07:34)
[2022-12-20 06:43] LABS: MB/CK RELATIVE INDEX 2.56 (< OR =4)
[2022-12-20 06:43] LABS: BASO # 0.1 10^3/uL (0.0-0.2); BASO % 0.8 % (0.0-1.0); EOS # 0.3 10^3/uL (0.0-0.5); EOS % 2.2 % (0.0-3.0); HEMATOCRIT 39.5 % (42.0-52.0); HEMOGLOBIN 12.6 g/dl (13.5-17.5); LYMPH # 2.3 10^3/uL (1.5-5.0); LYMPH % 17.9 % (24.0-44.0); MEAN CORPUSCULAR HGB CONC 31.9 g/dl (32.0-36.5); MEAN CORPUSCULAR VOLUME 87.8 fl (80.0-96.0); NEUTROPHILS % 69.9 % (36.0-66.0); PLATELET COUNT, AUTOMATED 381 10^3/uL (150-450); WHITE BLOOD COUNT 12.8 10^3/uL (4.0-10.0)
[2022-12-20] MEDS ORDERED: IPRA0.00 NEB (08:35)
[2022-12-20] MEDS ORDERED: PRED10TA2 PO (08:35)
[2022-12-20] MEDS ORDERED: AMOX875T2 PO (09:02)
[2022-12-20 09:06] VITALS: O2SAT 97
[2022-12-20 09:36] VITALS: O2SAT 89
== END 2022-12-20 09:38 | disposition home or self-care (01) ==
LOC: M ED 17:08
DX: J44.1 Chronic obstructive pulmonary disease with (acute) exacerbation (principal); Z79.899 Other long term (current) drug therapy; Z88.8 Allergy status to other drugs, medicaments and biological substances
CPT/HCPCS: 71046; 80048; 80076; 82550; 82553; 83880; 84436; 84443; 84484; 85025; 87631; 93005; 93041; 94640; 94760; 96374; 99285; J2930

== ENCOUNTER → 2023-05-19 | Outpatient (CLI) | payer MEDICAID, MEDICARE, OTHER ==
[~2023-05-19] MED LIST changes: +IPRA0.00 NEB
== END ==
LOC: M WHC 10:08
PROVIDERS: ATTEND Family Medicine
DX: Z13.6 Encounter for screening for cardiovascular disorders (principal)

== ENCOUNTER 2023-06-26 09:39 | Day surgery (SDC) | payer MEDICARE ==
[~2023-06-26] VITALS: Ht 177.8 cm; Wt 55.8 kg
[~2023-06-26 09:39] MED LIST changes: +CEFUROXIME 1MG/0.1ML INTRACAMERAL INJ As Ordered ONE; +CHOL400T8 PO; +FLURBIPROFEN 0.03% OPHTH SOLN 2.5 ML OS SCH; +LIDOCAINE 1% SDV 5ML VIAL As Ordered ONE; +LR 1,000 ML IV SCH; +PRED10PA PO
[2023-06-26] MEDS: CYCLOPENTOLATE 1% OPHTH SOLN 2ML BTL OS SCH ×2 (11:08→11:14)
[2023-06-26] MEDS: PHENYLEPHRINE 2.5% OPHTH SOL 2ML OS SCH ×2 (11:09→11:14)
[2023-06-26] MEDS: TETRACAINE 0.5% OPHTH SOLN 4ML OS SCH ×2 (11:09→11:14)
[2023-06-26] MEDS ORDERED: MIDAZOLAM INJ 2MG/2ML VIAL As Ordered ONE (13:19)
[2023-06-26 13:57] VITALS: BP 129/78; TEMP 97.9; O2SAT 95
== END 2023-06-26 14:16 | disposition home or self-care (01) ==
LOC: M SDC 09:39
PROVIDERS: ATTEND Ophthalmology
DX: H25.12 Age-related nuclear cataract, left eye (principal); I10 Essential (primary) hypertension; I73.9 Peripheral vascular disease, unspecified; I50.9 Heart failure, unspecified; K21.9 Gastro-esophageal reflux disease without esophagitis; J44.9 Chronic obstructive pulmonary disease, unspecified; Z79.52 Long term (current) use of systemic steroids; Z86.711 Personal history of pulmonary embolism; Z79.899 Other long term (current) drug therapy
CPT/HCPCS: 66984; J0697; J2250; V2632

== ENCOUNTER 2023-07-31 06:29 | Day surgery (SDC) | payer MEDICARE ==
[~2023-07-31] VITALS: Ht 179.1 cm; Wt 57.3 kg
[~2023-07-31 06:29] MED LIST changes: -CEFUROXIME 1MG/0.1ML INTRACAMERAL INJ As Ordered ONE; +CYCLOPENTOLATE 1% OPHTH SOLN 2ML BTL OD SCH; +FLURBIPROFEN 0.03% OPHTH SOLN 2.5 ML OD SCH; -FLURBIPROFEN 0.03% OPHTH SOLN 2.5 ML OS SCH; -LIDOCAINE 1% SDV 5ML VIAL As Ordered ONE; -LR 1,000 ML IV SCH; +PHENYLEPHRINE 2.5% OPHTH SOL 2ML OD SCH; +TETRACAINE 0.5% OPHTH SOLN 4ML OD SCH
[2023-07-31] MEDS ORDERED: LIDOCAINE 1% SDV 5ML VIAL As Ordered ONE (06:50)
[2023-07-31] MEDS ORDERED: CEFUROXIME 1MG/0.1ML INTRACAMERAL INJ As Ordered ONE (06:50)
[2023-07-31] MEDS ORDERED: LR 1,000 ML IV SCH (07:00)
[2023-07-31] MEDS ORDERED: MIDAZOLAM INJ 2MG/2ML VIAL As Ordered ONE (07:06)
[2023-07-31 08:42] VITALS: BP 167/78; TEMP 97.3; O2SAT 100
== END 2023-07-31 09:11 | disposition home or self-care (01) ==
LOC: M SDC 06:29
PROVIDERS: ATTEND Ophthalmology
DX: H25.11 Age-related nuclear cataract, right eye (principal); I50.9 Heart failure, unspecified; I10 Essential (primary) hypertension; J44.9 Chronic obstructive pulmonary disease, unspecified; E78.5 Hyperlipidemia, unspecified; K21.9 Gastro-esophageal reflux disease without esophagitis; Z79.52 Long term (current) use of systemic steroids; Z79.51 Long term (current) use of inhaled steroids; Z79.899 Other long term (current) drug therapy; Z88.8 Allergy status to other drugs, medicaments and biological substances; Z87.891 Personal history of nicotine dependence
CPT/HCPCS: 66984; J0697; J2250; V2632

== ENCOUNTER → 2024-01-25 | Outpatient (CLI) | payer MEDICAID, MEDICARE, OTHER ==
[~2024-01-25] MED LIST changes: -CYCLOPENTOLATE 1% OPHTH SOLN 2ML BTL OD SCH; +DOXY-323 PO; -DOXY-443 PO; -FLURBIPROFEN 0.03% OPHTH SOLN 2.5 ML OD SCH; -PHENYLEPHRINE 2.5% OPHTH SOL 2ML OD SCH; -TETRACAINE 0.5% OPHTH SOLN 4ML OD SCH
[2024-01-25 13:44] LABS: BASO # 0.1 10^3/uL (0.0-0.2); BASO % 0.6 % (0.0-1.0); EOS # 0.3 10^3/uL (0.0-0.5); EOS % 1.7 % (0.0-3.0); LYMPH # 2.4 10^3/uL (1.5-5.0); LYMPH % 16.3 % (24.0-44.0); MEAN CORPUSCULAR HEMOGLOBIN 27.3 pg (27.0-33.0); MEAN CORPUSCULAR HGB CONC 30.2 g/dl (32.0-36.5); MEAN CORPUSCULAR VOLUME 90.1 fl (80.0-96.0); MONO % 6.8 % (2.0-8.0); NEUTROPHILS # 10.9 10^3/uL (1.5-8.5); NEUTROPHILS % 73.7 % (36.0-66.0); PLATELET COUNT, AUTOMATED 435 10^3/uL (150-450); RED BLOOD COUNT 4.77 10^6/uL (4.30-6.10); WHITE BLOOD COUNT 14.8 10^3/uL (4.0-10.0)
[2024-01-25 14:33] LABS: ALKALINE PHOSPHATASE 109 U/L (46-116); ALT/SGPT 15 U/L (7.0-40); AST/SGOT 8 U/L (<34); BILIRUBIN,TOTAL 0.4 MG/DL (0.3-1.2); BLOOD UREA NITROGEN 16 MG/DL (9-23); CALCIUM LEVEL 9.8 MG/DL (8.3-10.6); CARBON DIOXIDE LEVEL 30 MMOL/L (20-31); CHLORIDE LEVEL 103 MMOL/L (98-107); CHOLESTEROL LEVEL 271 MG/DL (<200); CHOLESTEROL RISK RATIO 3.21 (<5); CREATININE FOR GFR 0.88 MG/DL (0.70-1.30); GLOMERULAR FILTRATION RATE > 60.0 (>49); GLUCOSE, FASTING 71 MG/DL (74-106); HDL CHOLESTEROL 84.4 MG/DL (>40); LDL CHOLESTEROL 158.2 MG/DL (<100); NON-HDL-C 186.6 MG/DL; POTASSIUM SERUM 4.3 MMOL/L (3.5-5.1); SODIUM LEVEL 141 MMOL/L (136-145); TOTAL PROTEIN 7.4 G/DL (5.7-8.2); TRIGLYCERIDES LEVEL 142 MG/DL (<150)
== END ==
LOC: M PLALAB 10:55
PROVIDERS: ATTEND Family Medicine
DX: Z01.818 Encounter for other preprocedural examination (principal); Z79.899 Other long term (current) drug therapy

== ENCOUNTER 2024-02-05 07:04 | Day surgery (SDC) | payer MEDICARE, MEDICAID ==
[~2024-02-05] VITALS: Ht 180.3 cm; Wt 51.6 kg
[2024-02-05] MEDS: NS 1,000 ML IV ONE (07:36)
[2024-02-05] MEDS ORDERED: LIDOCAINE 2% 100MG/5ML SDV (FOR ANES.) As Ordered ONE (07:55)
[2024-02-05] MEDS ORDERED: propofoL 200 MG/20 ML VIAL As Ordered ONE (07:55)
[2024-02-05 09:23] VITALS: BP 142/73; O2SAT 100
== END 2024-02-05 09:22 | disposition home or self-care (01) ==
LOC: M OPP 07:04
PROVIDERS: ATTEND Internal Medicine Gastroenterology
DX: Z86.010 Personal history of colon polyps (principal); D12.4 Benign neoplasm of descending colon; K63.5 Polyp of colon; K57.30 Diverticulosis of large intestine without perforation or abscess without bleeding; J45.909 Unspecified asthma, uncomplicated; I11.0 Hypertensive heart disease with heart failure; I50.9 Heart failure, unspecified; Z79.51 Long term (current) use of inhaled steroids; Z79.899 Other long term (current) drug therapy; Z88.8 Allergy status to other drugs, medicaments and biological substances

== ENCOUNTER → 2024-05-08 | Outpatient (CLI) | payer MEDICARE, MEDICAID ==
[~2024-05-08] MED LIST changes: -DOXY-323 PO; +DOXY-441 PO
== END ==
LOC: M RAD 09:14
PROVIDERS: ATTEND Internal Medicine Pulmonary Disease
DX: I27.81 Cor pulmonale (chronic) (principal); J43.9 Emphysema, unspecified; J84.10 Pulmonary fibrosis, unspecified; R91.8 Other nonspecific abnormal finding of lung field; I25.10 Atherosclerotic heart disease of native coronary artery without angina pectoris; I70.0 Atherosclerosis of aorta; K44.9 Diaphragmatic hernia without obstruction or gangrene; N28.1 Cyst of kidney, acquired; K76.89 Other specified diseases of liver

== ENCOUNTER → 2024-09-27 | Outpatient (CLI) | payer MEDICARE, MEDICAID ==
[~2024-09-27] MED LIST changes: -ADV250INH INH; +ADVA1AER9 INH; +BUDE90AE INH; -PULM90IN INH
== END ==
LOC: M RAD 11:17
PROVIDERS: ATTEND Internal Medicine Pulmonary Disease
DX: J44.9 Chronic obstructive pulmonary disease, unspecified (principal); J43.9 Emphysema, unspecified

== ENCOUNTER 2024-10-25 14:10 | Inpatient (IN) | payer MEDICAID, MEDICARE, OTHER ==
[~2024-10-25] VITALS: Ht 177.8 cm; Wt 52.1 kg
[2024-10-25] MEDS ORDERED: LISI2.5T9 PO (14:25)
[2024-10-25] MEDS ORDERED: ROSU5TAB49 PO (14:25)
[2024-10-25 15:05] LABS: BASO # 0.1 10^3/uL (0.0-0.2); BASO % 0.3 % (0.0-1.0); EOS % 0.1 % (0.0-3.0); HEMOGLOBIN 12.5 g/dl (13.5-17.5); LYMPH # 1.1 10^3/uL (1.5-5.0); LYMPH % 4.5 % (24.0-44.0); MEAN CORPUSCULAR HEMOGLOBIN 29.2 pg (27.0-33.0); MEAN CORPUSCULAR HGB CONC 32.1 g/dl (32.0-36.5); MEAN CORPUSCULAR VOLUME 91.1 fl (80.0-96.0); MONO # 0.7 10^3/uL (0.0-0.8); MONO % 3.1 % (2.0-8.0); NEUTROPHILS # 21.4 10^3/uL (1.5-8.5); NEUTROPHILS % 91.3 % (36.0-66.0); PLATELET COUNT, AUTOMATED 315 10^3/uL (150-450); RED BLOOD COUNT 4.28 10^6/uL (4.30-6.10); WHITE BLOOD COUNT 23.5 10^3/uL (4.0-10.0)
[2024-10-25 15:35] LABS: ALBUMIN 2.6 G/DL (3.2-5.2); ALKALINE PHOSPHATASE 81 U/L (40-129); ALT/SGPT 19 U/L (7.0-40); AST/SGOT 12 U/L (<34); BILIRUBIN,DIRECT 0.3 MG/DL (<0.4); BILIRUBIN,TOTAL 0.9 MG/DL (0.3-1.2); BLOOD UREA NITROGEN 12 MG/DL (9-23); CALCIUM LEVEL 9.1 MG/DL (8.3-10.6); CARBON DIOXIDE LEVEL 24 MMOL/L (20-31); CHLORIDE LEVEL 101 MMOL/L (98-107); CREATININE FOR GFR 0.83 MG/DL (0.70-1.30); GLOMERULAR FILTRATION RATE > 90.0 (>49); GLUCOSE, FASTING 138 MG/DL (74-106); POTASSIUM SERUM 3.6 MMOL/L (3.5-5.1); SODIUM LEVEL 139 MMOL/L (136-145); TOTAL PROTEIN 6.7 G/DL (5.7-8.2)
[2024-10-25 15:42] LABS: PROCALCITONIN 0.34 ng/ml
[2024-10-25] MEDS ORDERED: ISOVUE-370 76% 100ML VIAL As Ordered ONE (15:45)
[2024-10-25] MEDS: IPRATROPIUM 0.5MG/ALBUTEROL 2.5MG INH SOL UD 3ML NEB PRN ×2 (16:18→22:18)
[2024-10-25] MEDS ORDERED: methylPREDNISolone 40MG 1ML VIAL IV SCH (18:00)
[2024-10-25] MEDS ORDERED: MOM 30ML SUSPENSION UDC PO PRN (18:25)
[2024-10-25] MEDS ORDERED: ACETAMINOPHEN 325 MG TAB PO PRN (18:25)
[2024-10-25] MEDS ORDERED: MAALOX 30 ML SUSP *UDC PO PRN (18:25)
[2024-10-25] MEDS ORDERED: HOME MED LIST COMPLETE! XX SCH (18:40)
[2024-10-25] MEDS: LevoFLOXacin 750 MG TABLET PO SCH (18:55)
[2024-10-25] MEDS: NS (Normal Saline) 0.9% 1,000 ML IV SCH (18:55)
[2024-10-25] MEDS: IPRATROPIUM 0.5MG/ALBUTEROL 2.5MG INH SOL UD 3ML NEB SCH (20:20)
[2024-10-25] MEDS: ADVAIR HFA 230/21MCG INHALER INH SCH (20:20)
[2024-10-25] MEDS: guaiFENesin ER TABLET 600 MG TAB PO SCH (21:59)
[2024-10-25] MEDS: methylPREDNISolone 40MG 1ML VIAL IV SCH (21:59)
[2024-10-25] MEDS: DOCUSATE SODIUM 100MG CAPSULE PO SCH (21:59)
[2024-10-25] MEDS: METOPROLOL TART 25 MG TABLET PO SCH (22:00)
[2024-10-25] MEDS: METOPROLOL TART 25 MG TABLET PO ONE (22:55)
[2024-10-25 23:08] LABS: ABG BASE EXCESS -2.4 (-2.0-2.0); ABG HCO3 20.5 MMOL/L (22.0-26.0); ABG O2 SATURATION 98.5 % (95.0-99.0); ABG PARTIAL PRESSURE CO2 30.1 mmHg (35.0-45.0); ABG PARTIAL PRESSURE O2 132.8 mmHg (75.0-100.0); ABG STANDARD HCO3 22.5 MMOL/L. (22.0-26.0); ABG TOTAL CO2 21.4 MMOL/L (23.0-31.0); ABG pH (ARTERIAL) 7.451 UNITS (7.350-7.450)
[2024-10-26] VITALS (19 sets, daily range): BP systolic 123–139; BP diastolic 64–91; TEMP 97.4–98.6; O2SAT 93–100
[2024-10-26] MEDS: LEVALBUTEROL 1.25 MG 0.5ML CONCENTRATE NEB NEB SCH (02:39)
[2024-10-26 05:52] LABS: BASO % 0.1 % (0.0-1.0); HEMATOCRIT 37.7 % (42.0-52.0); LYMPH # 0.6 10^3/uL (1.5-5.0); LYMPH % 3.4 % (24.0-44.0); MEAN CORPUSCULAR HEMOGLOBIN 29.6 pg (27.0-33.0); MEAN CORPUSCULAR HGB CONC 31.8 g/dl (32.0-36.5); MEAN CORPUSCULAR VOLUME 93.1 fl (80.0-96.0); MONO # 0.4 10^3/uL (0.0-0.8); MONO % 2.1 % (2.0-8.0); NEUTROPHILS # 16.3 10^3/uL (1.5-8.5); NEUTROPHILS % 93.7 % (36.0-66.0); PLATELET COUNT, AUTOMATED 302 10^3/uL (150-450); RED BLOOD COUNT 4.05 10^6/uL (4.30-6.10); WHITE BLOOD COUNT 17.4 10^3/uL (4.0-10.0)
[2024-10-26 06:17] LABS: BLOOD UREA NITROGEN 16 MG/DL (9-23); CALCIUM LEVEL 8.9 MG/DL (8.3-10.6); CARBON DIOXIDE LEVEL 26 MMOL/L (20-31); CHLORIDE LEVEL 105 MMOL/L (98-107); CREATININE FOR GFR 0.78 MG/DL (0.70-1.30); GLOMERULAR FILTRATION RATE > 90.0 (>49); GLUCOSE, FASTING 124 MG/DL (74-106); POTASSIUM SERUM 4.1 MMOL/L (3.5-5.1); SODIUM LEVEL 143 MMOL/L (136-145)
[2024-10-26] MEDS: TIOTROPIUM BROM 2.5MCG/ACTUATION 4GM INH IH SCH (07:01)
[2024-10-26] MEDS: VITAMIN D (CHOLECALCIFEROL) 400 INTERNATIONAL UNITS TAB PO SCH (08:32)
[2024-10-26] MEDS: ROSUVASTATIN 10 MG TAB (CRESTOR) PO SCH (08:32)
[2024-10-26] MEDS: LACTOBACILLUS ACIDOPHILUS CAP (BACID) PO SCH (08:32)
[2024-10-26] MEDS: ENOXAPARIN 40MG/0.4ML SYRINGE (J1650 PER 10MG) SC SCH (08:32)
[2024-10-26] MEDS: LISINOPRIL *2.5 MG* TAB PO SCH (08:33)
[2024-10-26] MEDS: methylPREDNISolone 40MG 1ML VIAL IV SCH (17:20)
[2024-10-27 03:21] VITALS: BP 113/60; TEMP 98.2; O2SAT 98
[2024-10-27 06:03] LABS: BASO % 0.1 % (0.0-1.0); HEMATOCRIT 37.6 % (42.0-52.0); HEMOGLOBIN 11.8 g/dl (13.5-17.5); LYMPH # 0.7 10^3/uL (1.5-5.0); LYMPH % 3.8 % (24.0-44.0); MEAN CORPUSCULAR HEMOGLOBIN 28.9 pg (27.0-33.0); MEAN CORPUSCULAR HGB CONC 31.4 g/dl (32.0-36.5); MEAN CORPUSCULAR VOLUME 92.2 fl (80.0-96.0); MONO # 0.8 10^3/uL (0.0-0.8); MONO % 4.2 % (2.0-8.0); NEUTROPHILS # 17.3 10^3/uL (1.5-8.5); NEUTROPHILS % 91.1 % (36.0-66.0); PLATELET COUNT, AUTOMATED 342 10^3/uL (150-450); RED BLOOD COUNT 4.08 10^6/uL (4.30-6.10)
[2024-10-27 06:24] LABS: BLOOD UREA NITROGEN 24 MG/DL (9-23); CALCIUM LEVEL 9.5 MG/DL (8.3-10.6); CARBON DIOXIDE LEVEL 26 MMOL/L (20-31); CHLORIDE LEVEL 107 MMOL/L (98-107); CREATININE FOR GFR 0.89 MG/DL (0.70-1.30); GLOMERULAR FILTRATION RATE > 90.0 (>49); GLUCOSE, FASTING 147 MG/DL (74-106); MAGNESIUM LEVEL 2.1 MG/DL (1.8-2.4); POTASSIUM SERUM 3.9 MMOL/L (3.5-5.1); SODIUM LEVEL 145 MMOL/L (136-145)
[2024-10-27 08:01] VITALS: BP 124/69; TEMP 97.7; O2SAT 95
[2024-10-27 09:25] LABS: PROCALCITONIN 0.84 ng/ml
[2024-10-27] MEDS ORDERED: PRED10TA2 PO (10:52)
[2024-10-27] MEDS ORDERED: RISATAB3 PO (10:52)
[2024-10-27] MEDS ORDERED: MUCI600T31 PO (10:52)
[2024-10-27] MEDS ORDERED: LEVO75TAB PO (10:52)
[2024-10-27] MEDS ORDERED: PRED10PA PO (10:54)
[2024-10-27] MEDS ORDERED: predniSONE 20 MG TAB PO SCH (14:00)
[2024-10-28] MEDS ORDERED: CEFD300CAP PO (07:24)
== END 2024-10-27 12:44 | disposition home health service (06) | DRG 190 ==
LOC: M ED 14:10 → EDBD 14:10 → M ED INP 18:21 → M PCU 10-26 00:47
PROVIDERS: ADMIT Internal Medicine; ATTEND Internal Medicine
DX: J44.1 Chronic obstructive pulmonary disease with (acute) exacerbation (principal); J15.69 Pneumonia due to other Gram-negative bacteria; I50.32 Chronic diastolic (congestive) heart failure; J96.11 Chronic respiratory failure with hypoxia; I27.82 Chronic pulmonary embolism; I11.0 Hypertensive heart disease with heart failure; E78.5 Hyperlipidemia, unspecified; B97.0 Adenovirus as the cause of diseases classified elsewhere; E55.9 Vitamin D deficiency, unspecified; Z87.891 Personal history of nicotine dependence; Z98.41 Cataract extraction status, right eye; Z98.42 Cataract extraction status, left eye; Z79.52 Long term (current) use of systemic steroids; Z79.899 Other long term (current) drug therapy; Z88.8 Allergy status to other drugs, medicaments and biological substances; Z86.16 Personal history of COVID-19

== ENCOUNTER 2025-05-19 05:55 | Emergency (ER) | payer MEDICAID, MEDICARE ==
[~2025-05-19] VITALS: Ht 177.8 cm; Wt 49.2 kg
[~2025-05-19 05:55] MED LIST changes: +LEVO75TAB PO; +LISI2.5T9 PO; +RISATAB3 PO; +ROSU5TAB49 PO
[2025-05-19 06:22] LABS: PLATELET COUNT, AUTOMATED 376 10^3/uL (150-450)
[2025-05-19 06:45] LABS: CK-MB VALUE MASS < 1.0 NG/ML (<3.6)
[2025-05-19 06:47] LABS: ALT/SGPT 29 U/L (7.0-40); AST/SGOT 33 U/L (<34); CALCIUM LEVEL 9.2 MG/DL (8.3-10.6); CARBON DIOXIDE LEVEL 27 MMOL/L (20-31); CHLORIDE LEVEL 102 MMOL/L (98-107); CREATININE FOR GFR 0.86 MG/DL (0.70-1.30); GLOMERULAR FILTRATION RATE > 90.0 (>42); POTASSIUM SERUM 4.6 MMOL/L (3.5-5.1); SODIUM LEVEL 140 MMOL/L (136-145)
[2025-05-19 06:50] LABS: CPK CREATINE PHOSPHOKINASE 19 U/L (46-171)
[2025-05-19 08:12] LABS: APPEARANCE, URINE CLEAR (CLEAR); BACTERIA, URINE AUTO NEGATIVE (NEGATIVE); BILIRUBIN, URINE AUTO NEGATIVE (NEGATIVE); BLOOD, URINE BLOOD NEGATIVE (NEGATIVE); GLUCOSE, URINE (UA) AUTO NEGATIVE (NEGATIVE); KETONE, URINE AUTO NEGATIVE (NEGATIVE); LEUKOCYTE ESTERASE, URINE AUTO NEGATIVE (NEGATIVE); MUCUS, URINE SMALL (NEGATIVE); NITRITE, URINE AUTO NEGATIVE (NEGATIVE); PROTEIN, URINE AUTO NEGATIVE (NEGATIVE); RBC, URINE AUTO 2 /HPF (0-3); SPECIFIC GRAVITY URINE AUTO 1.018 (1.002-1.035); SQUAMOUS EPITHELIAL CELL UR AU 0 /HPF (0-6); UROBILINOGEN, URINE AUTO 2.0 mg/dL (0.0-2.0); WBC, URINE AUTO 0 /HPF (0-3)
[2025-05-19 08:30] LABS: ATYPICAL LYMPH 1 % (0-5); BASOPHILS 1 % (0-1); EOSINOPHILS 1 % (0-3); LYMPHOCYTES 11 % (16-44); MONOCYTES 3 % (0-5); NEUTROPHILS 81 % (28-66)
[2025-05-19 08:31] LABS: PLATELET ESTIMATE NORMAL (NORMAL)
[2025-05-19] MEDS ORDERED: D32000TA2 PO (08:34)
[2025-05-19] MEDS ORDERED: PRED10TA2 PO (08:34)
[2025-05-19] MEDS ORDERED: HOME MED LIST COMPLETE! XX SCH (08:35)
[2025-05-19 08:46] LABS: C REACTIVE PROTEIN QUANTITATIV 11.96 MG/DL (<1.0)
[2025-05-19 12:45] VITALS: BP 129/77; TEMP 99.1; O2SAT 97
== END 2025-05-19 14:08 | disposition home or self-care (01) ==
LOC: M ED 05:55
DX: R61 Generalized hyperhidrosis (principal); I50.9 Heart failure, unspecified; J44.9 Chronic obstructive pulmonary disease, unspecified; Z86.711 Personal history of pulmonary embolism; Z87.891 Personal history of nicotine dependence

== ENCOUNTER → 2025-05-23 | Outpatient (REF) | payer MEDICARE, OTHER ==
[~2025-05-23] MED LIST changes: +D32000TA2 PO
== END ==
LOC: M LAB REF 16:59
PROVIDERS: ATTEND Internal Medicine Pulmonary Disease
DX: R91.8 Other nonspecific abnormal finding of lung field (principal); R61 Generalized hyperhidrosis

== ENCOUNTER 2025-06-06 21:13 | Inpatient (IN) | payer MEDICARE ==
[~2025-06-06] VITALS: Ht 172.7 cm; Wt 47.4 kg
[2025-06-06 22:18] LABS: BASO # 0.1 10^3/uL (0.0-0.2); BASO % 0.3 % (0.0-1.0); EOS # 0.0 10^3/uL (0.0-0.5); EOS % 0.0 % (0.0-3.0); LYMPH # 1.1 10^3/uL (1.5-5.0); LYMPH % 5.8 % (24.0-44.0); MONO # 0.7 10^3/uL (0.0-0.8); MONO % 3.8 % (2.0-8.0); NEUTROPHILS # 17.5 10^3/uL (1.5-8.5); NEUTROPHILS % 89.3 % (36.0-66.0); PLATELET COUNT, AUTOMATED 544 10^3/uL (150-450)
[2025-06-06] MEDS: LEVALBUTEROL 1.25 MG 0.5ML CONCENTRATE NEB INH SCH (22:20)
[2025-06-06 23:19] LABS: ALT/SGPT 35 U/L (7.0-40); AST/SGOT 39 U/L (<34); CALCIUM LEVEL 8.6 MG/DL (8.3-10.6); CARBON DIOXIDE LEVEL 26 MMOL/L (20-31); CHLORIDE LEVEL 98 MMOL/L (98-107); CK-MB VALUE MASS < 1.0 NG/ML (<3.6); CPK CREATINE PHOSPHOKINASE 37 U/L (46-171); CREATININE FOR GFR 0.73 MG/DL (0.70-1.30); GLOMERULAR FILTRATION RATE > 90.0 (>42); POTASSIUM SERUM 5.4 MMOL/L (3.5-5.1); SODIUM LEVEL 137 MMOL/L (136-145)
[2025-06-06] MEDS: NS (Normal Saline) 0.9% 1,000 ML IV ONE (23:23)
[2025-06-06] MEDS ORDERED: ISOVUE-370 76% 100 ML VIAL As Ordered ONE (23:25)
[2025-06-06] MEDS: PIPERACILLIN/TAZOBACTAM SOD 4.5 GM in DEXTROSE 5% (D5W) ADV/MINI-BAG 50 ML IV ONE (23:26)
[2025-06-07 00:19] LABS: CK-MB VALUE MASS < 1.0 NG/ML (<3.6)
[2025-06-07 00:23] LABS: CPK CREATINE PHOSPHOKINASE 25 U/L (46-171)
[2025-06-07 03:55] LABS: MAGNESIUM LEVEL 1.7 MG/DL (1.8-2.4)
[2025-06-07 06:00] VITALS: BP 115/61; TEMP 97.5; O2SAT 98
[2025-06-07] MEDS: PIPERACILLIN/TAZOBACTAM SOD 4.5 GM in DEXTROSE 5% (D5W) ADV/MINI-BAG 50 ML IV SCH (06:11)
[2025-06-07 06:33] LABS: BASO # 0.0 10^3/uL (0.0-0.2); BASO % 0.1 % (0.0-1.0); EOS # 0.0 10^3/uL (0.0-0.5); EOS % 0.0 % (0.0-3.0); LYMPH # 0.9 10^3/uL (1.5-5.0); LYMPH % 5.6 % (24.0-44.0); MONO # 0.1 10^3/uL (0.0-0.8); MONO % 0.9 % (2.0-8.0); NEUTROPHILS # 13.9 10^3/uL (1.5-8.5); NEUTROPHILS % 92.1 % (36.0-66.0); PLATELET COUNT, AUTOMATED 546 10^3/uL (150-450)
[2025-06-07 07:14] LABS: ALT/SGPT 28 U/L (7.0-40); AST/SGOT 22 U/L (<34); CALCIUM LEVEL 8.1 MG/DL (8.3-10.6); CARBON DIOXIDE LEVEL 24 MMOL/L (20-31); CHLORIDE LEVEL 104 MMOL/L (98-107); CREATININE FOR GFR 0.68 MG/DL (0.70-1.30); GLOMERULAR FILTRATION RATE > 90.0 (>42); POTASSIUM SERUM 4.6 MMOL/L (3.5-5.1); SODIUM LEVEL 139 MMOL/L (136-145)
[2025-06-07 08:00] VITALS: BP 133/73; TEMP 97; O2SAT 97
[2025-06-07] MEDS: IPRATROPIUM 0.5 MG/ALBUTEROL 2.5 MG INH SOL UD 3 ML NEB SCH (08:16)
[2025-06-07] MEDS: HEPARIN SOD 5000 UNITS/ML 1 ML VIAL/SYRINGE SC SCH (08:28)
[2025-06-07] MEDS: MAG SULF 1GM/100ML (MAG RUN) 1 GM in IV 1 EA IV SCH (10:11)
[2025-06-07] MEDS: METOPROLOL TART 25 MG TABLET PO SCH (10:11)
[2025-06-07 12:00] VITALS: BP 104/56; TEMP 96.5; O2SAT 96
[2025-06-07 16:00] VITALS: BP 106/59; TEMP 97.4; O2SAT 96
[2025-06-07 20:00] VITALS: BP 107/62; TEMP 97.6; O2SAT 98
[2025-06-08] VITALS (10 sets, daily range): BP systolic 81–123; BP diastolic 50–67; TEMP 97–98; O2SAT 96–100
[2025-06-08 04:54] LABS: BASO # 0.0 10^3/uL (0.0-0.2); BASO % 0.1 % (0.0-1.0); EOS # 0.0 10^3/uL (0.0-0.5); EOS % 0.0 % (0.0-3.0); LYMPH # 1.1 10^3/uL (1.5-5.0); LYMPH % 5.3 % (24.0-44.0); MONO # 0.7 10^3/uL (0.0-0.8); MONO % 3.4 % (2.0-8.0); NEUTROPHILS # 19.0 10^3/uL (1.5-8.5); NEUTROPHILS % 90.2 % (36.0-66.0); PLATELET COUNT, AUTOMATED 510 10^3/uL (150-450)
[2025-06-08 05:22] LABS: ALT/SGPT 21 U/L (7.0-40); AST/SGOT 16 U/L (<34); CALCIUM LEVEL 7.9 MG/DL (8.3-10.6); CARBON DIOXIDE LEVEL 26 MMOL/L (20-31); CHLORIDE LEVEL 106 MMOL/L (98-107); CREATININE FOR GFR 0.69 MG/DL (0.70-1.30); GLOMERULAR FILTRATION RATE > 90.0 (>42); MAGNESIUM LEVEL 2.1 MG/DL (1.8-2.4); POTASSIUM SERUM 3.8 MMOL/L (3.5-5.1); SODIUM LEVEL 142 MMOL/L (136-145)
[2025-06-08] MEDS: predniSONE 20 MG TAB PO SCH (08:51)
[2025-06-08] MEDS: POTASSIUM CHLORIDE 10MEQ SR TABLET PO ONE (08:52)
[2025-06-08] MEDS: METOPROLOL 5 MG/5 ML VIAL IV STA (09:18)
[2025-06-08] MEDS ORDERED: LEVALBUTEROL 1.25 MG 0.5ML CONCENTRATE NEB INH PRN (11:10)
[2025-06-08] MEDS ORDERED: METOPROLOL 5 MG/5 ML VIAL IV PRN (12:00)
[2025-06-08] MEDS: LR 250 ML IV ONE (14:52)
[2025-06-09] VITALS: BP 106/54; TEMP 97.3; O2SAT 97
[2025-06-09 04:00] VITALS: BP 105/63; TEMP 97.1; O2SAT 96
[2025-06-09 05:38] LABS: BASO # 0.0 10^3/uL (0.0-0.2); BASO % 0.1 % (0.0-1.0); EOS # 0.0 10^3/uL (0.0-0.5); EOS % 0.0 % (0.0-3.0); LYMPH # 1.2 10^3/uL (1.5-5.0); LYMPH % 5.5 % (24.0-44.0); MONO # 1.2 10^3/uL (0.0-0.8); MONO % 5.4 % (2.0-8.0); NEUTROPHILS # 19.2 10^3/uL (1.5-8.5); NEUTROPHILS % 88.0 % (36.0-66.0); PLATELET COUNT, AUTOMATED 533 10^3/uL (150-450)
[2025-06-09 06:12] LABS: ALT/SGPT 31 U/L (7.0-40); AST/SGOT 29 U/L (<34); CALCIUM LEVEL 8.2 MG/DL (8.3-10.6); CARBON DIOXIDE LEVEL 28 MMOL/L (20-31); CHLORIDE LEVEL 107 MMOL/L (98-107); CREATININE FOR GFR 0.75 MG/DL (0.70-1.30); GLOMERULAR FILTRATION RATE > 90.0 (>42); MAGNESIUM LEVEL 2.0 MG/DL (1.8-2.4); POTASSIUM SERUM 5.0 MMOL/L (3.5-5.1); SODIUM LEVEL 143 MMOL/L (136-145)
[2025-06-09 08:00] VITALS: BP 154/70; TEMP 97.2; O2SAT 96
[2025-06-09 08:16] VITALS: BP 154/70
[2025-06-09] MEDS: METOPROLOL TART 25 MG TABLET PO SCH (08:16)
[2025-06-09] MEDS ORDERED: HOME MED LIST COMPLETE! XX SCH (10:35)
[2025-06-09 12:00] VITALS: BP 140/70; TEMP 97.3; O2SAT 96
[2025-06-09] MEDS ORDERED: FLUZONE HIGH DOSE (65+) 0.5 ML SYRINGE (25-26) IM.IMMUN ONE (14:00)
[2025-06-09] MEDS ORDERED: METO50TA7 PO (15:07)
[2025-06-09] MEDS ORDERED: AMOX875T2 PO (15:07)
[2025-06-09] MEDS ORDERED: PRED20TA PO (15:07)
== END 2025-06-09 16:48 | disposition home or self-care (01) | DRG 871 ==
LOC: EDBD 21:13 → M ED 21:13 → M ED INP 06-07 03:09 → M ICU 06-07 05:54
PROVIDERS: ADMIT Internal Medicine; ATTEND Internal Medicine
DX: A41.9 Sepsis, unspecified organism (principal); J15.9 Unspecified bacterial pneumonia; J96.11 Chronic respiratory failure with hypoxia; I50.32 Chronic diastolic (congestive) heart failure; J44.0 Chronic obstructive pulmonary disease with (acute) lower respiratory infection; J44.1 Chronic obstructive pulmonary disease with (acute) exacerbation; I47.10 Supraventricular tachycardia, unspecified; Z99.81 Dependence on supplemental oxygen; I11.0 Hypertensive heart disease with heart failure; Z86.711 Personal history of pulmonary embolism; E78.5 Hyperlipidemia, unspecified; K44.9 Diaphragmatic hernia without obstruction or gangrene; Z98.49 Cataract extraction status, unspecified eye; Z79.899 Other long term (current) drug therapy; Z88.8 Allergy status to other drugs, medicaments and biological substances

== ENCOUNTER 2025-06-18 15:53 | Observation (INO) | payer MEDICARE ==
[~2025-06-18] VITALS: Ht 175.3 cm; Wt 57.4 kg
[~2025-06-18 15:53] MED LIST changes: +METO50TA7 PO
[2025-06-18 17:05] LABS: BASO # 0.1 10^3/uL (0.0-0.2); BASO % 0.4 % (0.0-1.0); EOS # 0.1 10^3/uL (0.0-0.5); EOS % 0.6 % (0.0-3.0); LYMPH # 1.2 10^3/uL (1.5-5.0); LYMPH % 6.1 % (24.0-44.0); MONO # 1.0 10^3/uL (0.0-0.8); MONO % 5.2 % (2.0-8.0); NEUTROPHILS # 16.5 10^3/uL (1.5-8.5); NEUTROPHILS % 86.7 % (36.0-66.0); PLATELET COUNT, AUTOMATED 356 10^3/uL (150-450)
[2025-06-18 17:36] LABS: ALT/SGPT 30 U/L (7.0-40); AST/SGOT 24 U/L (<34); CALCIUM LEVEL 8.8 MG/DL (8.3-10.6); CARBON DIOXIDE LEVEL 26 MMOL/L (20-31); CHLORIDE LEVEL 100 MMOL/L (98-107); CREATININE FOR GFR 0.78 MG/DL (0.70-1.30); GLOMERULAR FILTRATION RATE > 90.0 (>42); POTASSIUM SERUM 4.6 MMOL/L (3.5-5.1); SODIUM LEVEL 136 MMOL/L (136-145)
[2025-06-18] MEDS ORDERED: MOM 30 ML SUSPENSION UDC PO PRN (19:00)
[2025-06-18] MEDS ORDERED: ONDANSETRON 4MG/2ML VIAL IV PRN (19:00)
[2025-06-18] MEDS ORDERED: ACETAMINOPHEN 325 MG TAB PO PRN (19:00)
[2025-06-18] MEDS ORDERED: HOME MED LIST COMPLETE! XX SCH (19:40)
[2025-06-18] MEDS: IPRATROPIUM 0.5 MG/ALBUTEROL 2.5 MG INH SOL UD 3 ML NEB SCH (20:03)
[2025-06-18] MEDS: DOXYCYCLINE HYCLATE 100 MG TABLET PO SCH (20:16)
[2025-06-18] MEDS: predniSONE 20 MG TAB PO SCH (20:17)
[2025-06-18 20:43] VITALS: BP 111/66; TEMP 97.9; O2SAT 97
[2025-06-18] MEDS: METOPROLOL TART 50 MG TAB PO SCH (21:54)
[2025-06-19] VITALS (8 sets, daily range): BP systolic 95–118; BP diastolic 52–80; TEMP 97.1–98.2; O2SAT 94–98
[2025-06-19 06:02] LABS: PLATELET COUNT, AUTOMATED 420 10^3/uL (150-450)
[2025-06-19 06:29] LABS: ALT/SGPT 25 U/L (7.0-40); AST/SGOT 15 U/L (<34); CALCIUM LEVEL 8.7 MG/DL (8.3-10.6); CARBON DIOXIDE LEVEL 25 MMOL/L (20-31); CHLORIDE LEVEL 101 MMOL/L (98-107); CREATININE FOR GFR 0.77 MG/DL (0.70-1.30); GLOMERULAR FILTRATION RATE > 90.0 (>42); MAGNESIUM LEVEL 1.7 MG/DL (1.8-2.4); POTASSIUM SERUM 4.2 MMOL/L (3.5-5.1); SODIUM LEVEL 138 MMOL/L (136-145)
[2025-06-19] MEDS: PANTOPRAZOLE 40MG TAB PO SCH (09:19)
[2025-06-19] MEDS: ENOXAPARIN 30 MG/0.3 ML SYRINGE (J1650 PER 10MG) SC SCH (09:20)
[2025-06-19] MEDS: MAG SULF 1GM/100ML (MAG RUN) 1 GM in IV 1 EA IV ONE (12:13)
[2025-06-19] MEDS: METOPROLOL 5 MG/5 ML VIAL IV STA ×3 (15:08→18:15)
[2025-06-19] MEDS ORDERED: ISOVUE-370 76% 100 ML VIAL As Ordered ONE (16:58)
[2025-06-19] MEDS: LEVALBUTEROL 1.25 MG 0.5ML CONCENTRATE NEB INH SCH (18:24)
[2025-06-19] MEDS: METOPROLOL TARTRATE 100 MG TAB PO SCH (19:09)
[2025-06-20] VITALS (7 sets, daily range): BP systolic 100–134; BP diastolic 57–85; TEMP 97.2–98.1; O2SAT 95–98
[2025-06-20 05:59] LABS: PLATELET COUNT, AUTOMATED 385 10^3/uL (150-450)
[2025-06-20 06:28] LABS: CALCIUM LEVEL 8.5 MG/DL (8.3-10.6); CARBON DIOXIDE LEVEL 25 MMOL/L (20-31); CHLORIDE LEVEL 109 MMOL/L (98-107); CREATININE FOR GFR 0.87 MG/DL (0.70-1.30); GLOMERULAR FILTRATION RATE > 90.0 (>42); MAGNESIUM LEVEL 1.6 MG/DL (1.8-2.4); POTASSIUM SERUM 3.9 MMOL/L (3.5-5.1); SODIUM LEVEL 144 MMOL/L (136-145)
[2025-06-20] MEDS: METOPROLOL 5 MG/5 ML VIAL IV STA ×3 (08:50→20:23)
[2025-06-20] MEDS: FLUZONE HIGH DOSE (65+) 0.5 ML SYRINGE (25-26) IM.IMMUN ONE (09:23)
[2025-06-20] MEDS: METOPROLOL TART 25 MG TABLET PO ONE (18:17)
[2025-06-20] MEDS: METOPROLOL TART 25 MG TABLET PO SCH (20:07)
[2025-06-21 03:41] VITALS: BP 97/58; TEMP 97.9; O2SAT 98
[2025-06-21] MEDS ORDERED: LEVALBUTEROL HFA 45 MCG/ACT 15 GM INHALER INH PRN (07:25)
[2025-06-21 08:00] VITALS: BP 136/84; TEMP 97.9; O2SAT 96
[2025-06-21] MEDS: ADVAIR HFA 230/21 MCG INHALER INH SCH (08:16)
[2025-06-21] MEDS: TIOTROPIUM BROM 2.5MCG/ACTUATION 4GM INH INH SCH (08:16)
[2025-06-21] MEDS: LEVALBUTEROL 1.25 MG 0.5ML CONCENTRATE NEB INH SCH (08:16)
[2025-06-21 08:22] VITALS: BP 97/58
[2025-06-21] MEDS: predniSONE 10 MG TAB PO SCH (08:22)
[2025-06-21] MEDS: METOPROLOL TARTRATE 100 MG TAB PO SCH (08:22)
[2025-06-21 08:34] LABS: BASO # 0.1 10^3/uL (0.0-0.2); BASO % 0.4 % (0.0-1.0); EOS # 0.2 10^3/uL (0.0-0.5); EOS % 0.8 % (0.0-3.0); LYMPH # 2.4 10^3/uL (1.5-5.0); LYMPH % 13.3 % (24.0-44.0); MONO # 0.9 10^3/uL (0.0-0.8); MONO % 5.0 % (2.0-8.0); NEUTROPHILS # 14.5 10^3/uL (1.5-8.5); NEUTROPHILS % 79.8 % (36.0-66.0); PLATELET COUNT, AUTOMATED 441 10^3/uL (150-450)
[2025-06-21 08:59] LABS: CALCIUM LEVEL 8.9 MG/DL (8.3-10.6); CARBON DIOXIDE LEVEL 27 MMOL/L (20-31); CHLORIDE LEVEL 107 MMOL/L (98-107); CREATININE FOR GFR 0.75 MG/DL (0.70-1.30); GLOMERULAR FILTRATION RATE > 90.0 (>42); MAGNESIUM LEVEL 1.3 MG/DL (1.8-2.4); POTASSIUM SERUM 3.8 MMOL/L (3.5-5.1); SODIUM LEVEL 143 MMOL/L (136-145)
[2025-06-21] MEDS ORDERED: DOXY100T PO (12:17)
[2025-06-21] MEDS ORDERED: ALBU2.5V10 INH (12:17)
[2025-06-21] MEDS ORDERED: VENTAER INH (12:17)
[2025-06-21] MEDS ORDERED: MAGN250T9 PO (12:17)
[2025-06-21] MEDS ORDERED: LOPR1TAB7 PO (12:17)
[2025-06-21] MEDS ORDERED: ALB2.5NEB NEB (12:17)
[2025-06-21] MEDS: MAG SULF 1GM/100ML (MAG RUN) 1 GM in IV 1 EA IV ONE (12:35)
[2025-06-21] MEDS: MAGNESIUM OXIDE 400 MG TAB PO ONE (12:35)
== END 2025-06-21 14:55 | disposition home or self-care (01) ==
LOC: M ED 15:53 → EDBD 15:53 → M ED INP 15:54 → CANBEDREQ 17:24 → M MS4PR 20:30 → M PCU 06-19 14:37
PROVIDERS: ADMIT Internal Medicine; ATTEND Internal Medicine
DX: J44.1 Chronic obstructive pulmonary disease with (acute) exacerbation (principal); J44.0 Chronic obstructive pulmonary disease with (acute) lower respiratory infection; I47.19 Other supraventricular tachycardia; E46 Unspecified protein-calorie malnutrition; M62.81 Muscle weakness (generalized); G73.1 Lambert-Eaton syndrome in neoplastic disease; J96.10 Chronic respiratory failure, unspecified whether with hypoxia or hypercapnia; I50.30 Unspecified diastolic (congestive) heart failure; I27.23 Pulmonary hypertension due to lung diseases and hypoxia; Z86.711 Personal history of pulmonary embolism; E78.5 Hyperlipidemia, unspecified; I10 Essential (primary) hypertension; K44.9 Diaphragmatic hernia without obstruction or gangrene; M41.9 Scoliosis, unspecified; Z79.51 Long term (current) use of inhaled steroids; Z79.899 Other long term (current) drug therapy; Z79.2 Long term (current) use of antibiotics; Z79.52 Long term (current) use of systemic steroids; Z88.8 Allergy status to other drugs, medicaments and biological substances; Z23 Encounter for immunization
CPT/HCPCS: 36415; 71045; 71275; 80048; 80053; 80076; 83735; 84145; 84443; 85025; 85027; 87040; 87486; 87581; 87633; 87798; 90662; 93005; 93306; 94640; 96361; 96372; 96374; 96376; 97116; 97161; 99285; G0008; G0378; J0616; J1650; J3475; J7512; Q9967